=== PATIENT | male | born 1955 | race Caucasian/White ===

== ENCOUNTER → 2016-11-28 | Outpatient (CLI) | payer BC ==
--- NOTE | 2016-11-28 14:04 | DIAGNOSTIC IMAGING REPORT ---
CT OF THE CHEST WITHOUT IV CONTRAST CLINICAL HISTORY: Abnormal chest radiograph. Cough. COMPARISON STUDY: Chest radiograph November 01, 2016. CT DOSE: 426.54 mGy.cm TECHNIQUE: Axial images of the chest were obtained without IV contrast. Images were reviewed in the axial, sagittal, and coronal planes. IV contrast was not administered for this examination. FINDINGS: No enlarged axillary, mediastinal or hilar lymph nodes are present. The size of the heart is normal. There is no pericardial effusion. A small hiatal hernia is present. The central airways are patent. No consolidation is present. No pulmonary nodules are identified. The possible nodule shown on exam of November 01, 2016 was artifactual. There is no pneumothorax or pleural effusion. The bony thorax is unremarkable. A right hepatic lobe cyst is incidentally noted. IMPRESSION: 1. No acute findings within the chest. 2. The possible right lung nodule shown on exam November 01, 2016 was artifactual. 3. Small hiatal hernia. Electronically signed by: Montana Vaca M.D. 11/28/2016 2:02 PM Dictated Date/Time: 11/28/2016 1:51 PM
--- NOTE | 2016-12-01 08:11 | PULMONARY FUNCTION TEST ---
Spirometry shows a normal forced vital capacity, FEV1, and FEV1/FVC ratio. Mid flow rates are decreased to 63% of predicted. This is not definitively abnormal, but cannot exclude small airways dysfunction. A repeat spirometry done following bronchodilators showed significant improvement in small airways function only. Advise clinical correlation. Flow volume loops on expiration were normal. There was marked flattening on the inspiratory portion of the flow volume loop. This is likely due to patient technique. Cannot however, exclude a variable extrathoracic obstruction. Advise clinical correlation.
== END | disposition home or self-care (01) ==
LOC: C.RC 12:46
DX: R05 Cough (principal); R91.8 Other nonspecific abnormal finding of lung field; K44.9 Diaphragmatic hernia without obstruction or gangrene

== ENCOUNTER → 2017-04-21 | Outpatient (CLI) | payer BC ==
[2017-04-21 10:37] LABS: BLOOD UREA NITROGEN 10 mg/dl (7-18); BUN/CREATININE RATIO 10.6 (10-20); CALCIUM 8.6 mg/dl (8.5-10.1); CARBON DIOXIDE 27 mmol/L (21-32); CHLORIDE 109 mmol/L (98-107); CREATININE 0.95 mg/dl (0.60-1.40); GLUCOSE 90 mg/dl (70-99); POTASSIUM 4.2 mmol/L (3.5-5.1); SODIUM 142 mmol/L (136-145)
[2017-04-21 10:41] LABS: CHOLESTEROL 166 mg/dl (0-200); CHOLESTEROL/HDL RATIO 2.9; HDL CHOLESTEROL 57 mg/dl; TRIGLYCERIDES 95 mg/dl (0-150); VERY LOW DENSITY LIPOPROT CALC 19 mg/dl
[2017-04-21 11:25] LABS: URINE APPEARANCE CLEAR (CLEAR); URINE BILIRUBIN NEG (NEG); URINE COLOR YELLOW; URINE EPITHELIAL CELL AUTO 0-5 /lpf (0-5); URINE NITRITE NEG (NEG); URINE SPECIFIC GRAVITY 1.017 (1.000-1.030); UROBILINOGEN NEG (NEG)
[2017-04-21 11:31] LABS: MANUAL MICROSCOPIC REQUIRED? NO; REVIEW REQ? NO
[2017-04-23 11:30] LABS: C-REACTIVE PROT HIGHSEN 3.6 MG/L
== END | disposition home or self-care (01) ==
LOC: C.LAB 09:40
DX: E78.5 Hyperlipidemia, unspecified (principal); R73.9 Hyperglycemia, unspecified; N20.0 Calculus of kidney

== ENCOUNTER 2023-10-13 14:08 | Inpatient (IN) ==
[2023-10-13] MEDS ORDERED: ASPIRIN 81 MG CHEW PO STA (14:25)
[2023-10-13] MEDS ORDERED: NITROGLYCERIN SL 0.4 MG/TAB TAB SL STA (14:25)
--- NOTE | 2023-10-13 14:29 | Emergency Department Note ---
Impression & Plan Chest pain, Elevated troponin ED Provider Note Provider: Alexander Pineda MD DATE OF SERVICE: 10/13/2023 CHIEF COMPLAINT: Chest pain HISTORY OF PRESENT ILLNESS: Patient is a 68-year-old gentleman denies significant past medical history presenting here today with approximately 30 minutes of central chest pressure constant nature started when he was working at his desk. Some associated nausea but no vomiting. Some numbness and tingling in the upper extremities but denies headache. Denies recent illness or cough or cold. Denies shortness of breath to me. Pain is moderate little bit and is currently 4 out of 10 from 5 out of 10 when he arrived. Father did have a history of cardiac disease. Does not take aspirin normally. Non-smoker. No recent travel. No leg swelling. Was a bit sweaty earlier. PAST MEDICAL HISTORY: As noted above MEDICATIONS: Denies to me FMH: Father with heart disease/[place] SOCIAL HISTORY: Non-smoker PHYSICAL EXAM: GENERAL: alert and oriented in no acute distress on stretcher Head: normocephalic and atraumatic EYES: No injection, discharge or icterus. NECK: Trachea midline. ENT: Mucous membranes pink and moist. LUNGS: Airway patent. No retractions. Breath sounds clear HEART: Regular rate and rhythm. No chest wall tenderness ABDOMEN: Soft and non-tender, without guarding or rebound. SKIN: Acyanotic, warm, dry, without rashes EXTREMITIES: Without swelling, tenderness or deformity NEUROLOGICAL: No focal deficits. No aphasia. No facial droop or slurred speech. Ambulatory. EK bpm sinus rhythm left axis. No PVC. ST elevation in V1 with hyperacute T waves V2 through V4. No reciprocal depression appreciated. EKG 2: 78 bpm normal sinus rhythm with a PVC. P1 ST elevation with some prominent V2 V3 V4 T waves. Question of some slight lead II ST depression. CONTINUOUS CARDIAC MONITORING: was ordered and showed a heart rate of 70s to 80s bpm in normal sinus rhythm Patient's laboratory studies and imaging reviewed. Differential includes Cardiac ischemia, aortic dissection, pulmonary embolism, pneumothorax, pneumonia, pericarditis, myocarditis, esophageal rupture, GERD, cholecystitis, pancreatitis, musculoskeletal, as well as other pathologies. IMPRESSION/MEDICAL DECISION MAKING: Patient reportedly without significant past medical history presenting here with chest pressure. No trauma. No recent illness. Benign abdomen without tenderness lower suspicion for intra-abdominal pathology. Initial EKG from triage reviewed by rohitelf and medically put in room A1. Aspirin ordered. Patient evaluated. EKG discussed with interventional cardiology Dr. Curiel given concerning findings. He recommended starting the patient on heparin and ordering a stat cardiac echo and that he would come in and evaluate the patient in room A1 immediately. Patient's pain moderated slightly. Blood work sent including chemistry/electrolytes, lipase and troponin. Chest x-ray ordered. Doubt this represents PE or dissection at this point. Not hypoxic. Not short of breath. Stat cardiac echo was ordered and quickly came to room A1 for evaluation. Dr. Curiel of interventional cardiology reviewed echo and EKGs and evaluated the patient here in room A1. Patient's pain symptoms are moderating some. Chest x- ray report reviewed by myself questioning some interstitial prominence with the patient without infectious symptoms or clinical evidence of fluid overload at this time. Dialer had discussion with patient and family and in shared decision-making proceeded with initiation of a heart alert for further cardiac evaluation. The hospitalist team was made aware. CBC and chemistries without severe abnormality. No finding of hepatitis or pancreatitis. Troponin returns modestly elevated here and again patient going for cardiac catheterization. DIAGNOSIS: Chest pain, elevated troponin DISPOSITION: Hospitalist will evaluate the patient for further care here after cardiac catheterization Critical Care I have personally spent 31 minutes of critical care time in the direct management of this patient. This includes bedside care, interpretation of diagnostic studies, and testing, discussion with consultants, patient, and family members, and other required patient management activities. These 31 minutes is in excess of all separately billable procedures. Past Med/Surg History Medical History Kidney stone Surgical History History of colonoscopy Family History Mother Breast cancer Cancer Denies family history of Ovarian cancer Prostate cancer Myocardial infarction Lung cancer Colorectal cancer Social History Smoking Status: Former smoker Tobacco Type: Cigarettes Age Started Using Tobacco: 18; Age Quit Using Tobacco: 20; Cigarettes Per Day: 1-2 cigarettes per day; Second Hand Exposure: No; Do You Dip or Chew Tobacco: No; Tobacco Cessation Education Requested by Patient: No Hx Alcohol Use: No Hx Substance Use: No Preferred Language: Sinhala Communication Ability: Effective Visual Impairment: Limited Hearing Ability: Normal Needle Loom Weaver Required: No Beliefs That Will Affect Care: None marital status: Current Living Situation: Spouse Current Living Situation Comment: spouse and 1 child current occupational status: employed 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 @ [employer] How many Children do You have: 4 Other Information That Helps Us Care for You: No Feels Safe at Home: No Is there a partner from a previous relationship who is making you feel unsafe now?: No Any Concerns about Your Family Situation: No Would You Like to Speak to Someone About Your Situation: No Safety Concerns: Feels Safe At This Time Childhood Exposure to Second-Hand Smoke: No caffeine: Yes (coffee & tea) Dental Care, Regularly: Yes Physical Activity Frequency: Does not Exercise Seatbelt Use: always Sunscreen Use: No Assistive Devices: None Allergies Allergies Allergy/AdvReac Type Severity Reaction Status Date / Time No Known Allergies Allergy Verified 10/13/23 15:00 Home Meds Home Medications Medication Instructions Recorded Confirmed omega 6-rxd-ahk-fish oil 1,000 mg 1 cap PO DAILY 10/13/23 10/13/23 (120 mg-180 mg) capsule (Fish Oil) psyllium husk 3.4 gram/5.4 gram 1 tbsp PO DAILY 10/13/23 10/13/23 oral powder (Metamucil) Results & Data (ED) Vital Signs Vital Signs - 24 hr 10/13/23 14:08 10/13/23 14:08 10/13/23 14:12 Temperature 36.6 C Temperature Source Temporal Artery Scan Pulse Rate 80 78 Respiratory Rate 18 20 Blood Pressure 120/89 Blood Pressure Mean 99 Pulse Oximetry 96 94 Oxygen Delivery Method Room Air Room Air Sepsis Recent Fever Within 48 Hours No Sepsis New/Unexplained Change in Mental Status N/A Sepsis Action Taken by Nursing No Action Required 10/13/23 14:18 10/13/23 14:31 10/13/23 15:07 Temperature Temperature Source Pulse Rate 78 83 78 Respiratory Rate 20 15 Blood Pressure 120/81 Blood Pressure Mean 94 Pulse Oximetry 95 92 Oxygen Delivery Method Room Air Room Air Sepsis Recent Fever Within 48 Hours Sepsis New/Unexplained Change in Mental Status Sepsis Action Taken by Nursing Laboratory Data 10/13/23 18:23 12/02/23 18:23 Lab Results 10/13/23 10/13/23 10/13/23 Range/Units 14:47 14:50 16:26 WBC 7.14 (4.8-10.8) K/ul RBC 5.71 (4.70-6.10) M/uL Hgb 17.2 (14.0-18.0) g/dl POC Hgb 17.3 (14.0-18.0) g/dl Hct 51.0 (42.0-52.0) % POC Hct 51 (42-52) % MCV 89.3 (80.0-100.0) fL MCH 30.1 (25.0-34.0) pg MCHC 33.7 (32.0-36.0) g/dL RDW Std Deviation 42.5 (36.4-46.3) fL RDW Coeff of Maynor 13.1 (11.5-14.5) % Plt Count 201 (130-400) K/uL MPV 10.7 (9.4-12.4) fL Immature Gran % (Auto) 0.1 % Neut % (Auto) 55.8 % Lymph % (Auto) 30.1 % [place] % (Auto) 8.0 % Eos % (Auto) 5.0 % Baso % (Auto) 1.0 % Neut # (Auto) 3.98 (1.40-6.50) K/uL Lymph # (Auto) 2.15 (1.20-3.40) K/uL [place] # (Auto) 0.57 (0.11-0.59) K/uL Eos # (Auto) 0.36 (0.00-0.50) K/uL Baso # (Auto) 0.07 (0.00-0.20) K/uL Immature Gran # (Auto) 0.01 (0.01-0.20) K/uL Platelet Estimate Normal (Normal) PT Cancelled INR Cancelled APTT Cancelled PTT Ratio Cancelled Activ Coag Time Kaolin 163 H (94-140) SECONDS POC Sodium 138 (135-144) mmol/L Sodium TNP POC Potassium 4.4 (3.3-5.0) mmol/L Potassium TNP POC Chloride 102 (101-112) mmol/L Chloride 101 (98-107) mmol/L Carbon Dioxide 27 (21-32) mmol/L POC Total CO2 28 (24-31) mmol/L Anion Gap TNP POC Anion Gap 13.0 L (16-25) mmol/L POC BUN 23 H (7-18) mg/dl BUN 17 (6-23) mg/dl Creatinine 0.99 (0.6-1.4) mg/dl POC Creatinine 1.0 (0.6-1.3) mg/dl Est Cr Clr Drug Dosing 88.3 ml/min Est GFR ( Amer) 90.3 ml/min Est GFR (Non-Af Amer) 77.9 ml/min BUN/Creatinine Ratio 17.2 (10-20) Glucose 142 H (70-99(Fasting)) mg/dl POC Glucose (other) 151 H (70-99) mg/dl Calcium 9.3 (8.6-10.3) mg/dl POC Ioniz Calcium Bridget 1.15 (1.12-1.32) mmol/l Total Bilirubin 0.4 (0.2-1.0) mg/dl AST TNP ALT 31 (7-52) U/L Alkaline Phosphatase 77 (34-104) U/L Troponin I High Sens 64.4 H* (0-20) pg/ml Total Protein 8.4 H (6.0-8.3) gm/dl Albumin 4.9 (3.4-5.0) gm/dl Globulin 3.5 (2.5-4.0) gm/dl Albumin/Globulin Ratio 1.4 (0.9-2) Lipase 41 (11-82) U/L 10/13/23 10/13/23 10/13/23 Range/Units 16:47 17:08 17:34 WBC (4.8-10.8) K/ul RBC (4.70-6.10) M/uL Hgb (14.0-18.0) g/dl POC Hgb (14.0-18.0) g/dl Hct (42.0-52.0) % POC Hct (42-52) % MCV (80.0-100.0) fL MCH (25.0-34.0) pg MCHC (32.0-36.0) g/dL RDW Std Deviation (36.4-46.3) fL RDW Coeff of Maynor (11.5-14.5) % Plt Count (130-400) K/uL MPV (9.4-12.4) fL Immature Gran % (Auto) % Neut % (Auto) % Lymph % (Auto) % [place] % (Auto) % Eos % (Auto) % Baso % (Auto) % Neut # (Auto) (1.40-6.50) K/uL Lymph # (Auto) (1.20-3.40) K/uL [place] # (Auto) (0.11-0.59) K/uL Eos # (Auto) (0.00-0.50) K/uL Baso # (Auto) (0.00-0.20) K/uL Immature Gran # (Auto) (0.01-0.20) K/uL Platelet Estimate (Normal) PT INR APTT PTT Ratio Activ Coag Time Kaolin 271 H 298 H 217 H (94-140) SECONDS POC Sodium (135-144) mmol/L Sodium POC Potassium (3.3-5.0) mmol/L Potassium POC Chloride (101-112) mmol/L Chloride (98-107) mmol/L Carbon Dioxide (21-32) mmol/L POC Total CO2 (24-31) mmol/L Anion Gap POC Anion Gap (16-25) mmol/L POC BUN (7-18) mg/dl BUN (6-23) mg/dl Creatinine (0.6-1.4) mg/dl POC Creatinine (0.6-1.3) mg/dl Est Cr Clr Drug Dosing ml/min Est GFR ( Amer) ml/min Est GFR (Non-Af Amer) ml/min BUN/Creatinine Ratio (10-20) Glucose (70-99(Fasting)) mg/dl POC Glucose (other) (70-99) mg/dl Calcium (8.6-10.3) mg/dl POC Ioniz Calcium Bridget (1.12-1.32) mmol/l Total Bilirubin (0.2-1.0) mg/dl AST ALT (7-52) U/L Alkaline Phosphatase (34-104) U/L Troponin I High Sens (0-20) pg/ml Total Protein (6.0-8.3) gm/dl Albumin (3.4-5.0) gm/dl Globulin (2.5-4.0) gm/dl Albumin/Globulin Ratio (0.9-2) Lipase (11-82) U/L 10/13/23 Range/Units 17:40 WBC (4.8-10.8) K/ul RBC (4.70-6.10) M/uL Hgb (14.0-18.0) g/dl POC Hgb (14.0-18.0) g/dl Hct (42.0-52.0) % POC Hct (42-52) % MCV (80.0-100.0) fL MCH (25.0-34.0) pg MCHC (32.0-36.0) g/dL RDW Std Deviation (36.4-46.3) fL RDW Coeff of Maynor (11.5-14.5) % Plt Count (130-400) K/uL MPV (9.4-12.4) fL Immature Gran % (Auto) % Neut % (Auto) % Lymph % (Auto) % [place] % (Auto) % Eos % (Auto) % Baso % (Auto) % Neut # (Auto) (1.40-6.50) K/uL Lymph # (Auto) (1.20-3.40) K/uL [place] # (Auto) (0.11-0.59) K/uL Eos # (Auto) (0.00-0.50) K/uL Baso # (Auto) (0.00-0.20) K/uL Immature Gran # (Auto) (0.01-0.20) K/uL Platelet Estimate (Normal) PT INR APTT PTT Ratio Activ Coag Time Kaolin 234 H (94-140) SECONDS POC Sodium (135-144) mmol/L Sodium POC Potassium (3.3-5.0) mmol/L Potassium POC Chloride (101-112) mmol/L Chloride (98-107) mmol/L Carbon Dioxide (21-32) mmol/L POC Total CO2 (24-31) mmol/L Anion Gap POC Anion Gap (16-25) mmol/L POC BUN (7-18) mg/dl BUN (6-23) mg/dl Creatinine (0.6-1.4) mg/dl POC Creatinine (0.6-1.3) mg/dl Est Cr Clr Drug Dosing ml/min Est GFR ( Amer) ml/min Est GFR (Non-Af Amer) ml/min BUN/Creatinine Ratio (10-20) Glucose (70-99(Fasting)) mg/dl POC Glucose (other) (70-99) mg/dl Calcium (8.6-10.3) mg/dl POC Ioniz Calcium Bridget (1.12-1.32) mmol/l Total Bilirubin (0.2-1.0) mg/dl AST ALT (7-52) U/L Alkaline Phosphatase (34-104) U/L Troponin I High Sens (0-20) pg/ml Total Protein (6.0-8.3) gm/dl Albumin (3.4-5.0) gm/dl Globulin (2.5-4.0) gm/dl Albumin/Globulin Ratio (0.9-2) Lipase (11-82) U/L Administered Medications Sodium Chloride (Nss) 1,000 mls @ 75 mls/hr IV .[id number] BRENDON Stop: 11/12/23 18:14 Last Admin: 10/13/23 19:21 Dose: 75 mls/hr Documented By: ZIA Miscellaneous (Icu Protocol For Hyperglycemia) 1 each N/A ACHS BRENDON Stop: 10/15/23 18:13 Last Admin: 10/13/23 18:17 Dose: Not Given Documented By: GPF Discontinued Medications Aspirin (Aspirin 81 Mg Chew) 324 mg PO NOW STA Stop: 10/13/23 14:26 Last Admin: 10/13/23 14:38 Dose: 324 mg Documented By: QGV Fentanyl Citrate (Fentanyl Citrate Pf 100 Mcg/2 Ml Vial) Confirm Administered Dose 100 mcg .ROUTE .STK-MED ONE Stop: 10/13/23 16:00 Last Increment: 10/13/23 17:36 Dose: 50 mcg Documented By: BPY Heparin Sodium (Porcine) (Heparin Sod (Porcine) 1000 Unit/Ml) 4,000 units IV NOW ONE Stop: 10/13/23 15:01 Last Admin: 10/13/23 14:56 Dose: 4,000 units Documented By: QGV Co-signed By: MARY Heparin Sodium (Porcine) (Heparin (Porcine) 1000 Unit/Ml 10 Ml (Loading Unit Operator Use Only)) Confirm Administered Dose 10,000 units .ROUTE .STK-MED ONE Stop: 10/13/23 16:00 Last Admin: 10/13/23 17:36 Dose: 8,000 units Documented By: GREGORY Heparin Sodium/Dextrose (Heparin Iv Adult Wt-Based Low-Dose With Bolus Protocol) 1 each IV NOW STA; Protocol Stop: 10/13/23 14:33 Last Admin: 10/13/23 14:56 Dose: 1 each Documented By: QGV Heparin Sodium/Sodium Chloride (Heparin In Nss Infusion 1000 Unit/500 Ml (2 U/Ml) Bag) Confirm Administered Dose 3,000 units IV .STK-MED ONE Stop: 10/13/23 16:01 Last Admin: 10/13/23 17:37 Dose: 3,000 units Documented By: GREGORY Heparin Sodium/Dextrose (Heparin Sodium/Dextrose) 25,000 units in 500 mls @ 20 mls/hr IV .Q24H [facility]; Protocol Stop: 11/12/23 14:59 Last Admin: 10/13/23 14:56 Dose: 1,000 units/hr, 20 mls/hr Documented By: CARLOSV Co-signed By: MARY Midazolam HCl (Midazolam Hcl 1 Mg/Ml 2ml Vial) Confirm Administered Dose 2 mg .ROUTE .STK-MED ONE Stop: 10/13/23 15:59 Last Admin: 10/13/23 17:36 Dose: 2 mg Documented By: GREGORY Nicardipine HCl (Nicardipine Hcl Inj 2.5 Mg/Ml 10 Ml Amp) Confirm Administered Dose 25 mg .ROUTE .STK-MED ONE Stop: 10/13/23 16:00 Last Admin: 10/13/23 17:37 Dose: 25 mg Documented By: BPElier Nitroglycerin (Nitroglycerin Sl 0.4 Mg/Tab Tab) 0.4 mg SL NOW STA Stop: 10/13/23 14:26 Last Admin: 10/13/23 14:39 Dose: 0.4 mg Documented By: QGV Nitroglycerin/Dextrose (Nitroglycerin/D5w 100mcg/Ml 20ml Syr) Confirm Administered Dose 2,000 mcg .ROUTE .STK-MED ONE Stop: 10/13/23 16:01 Last Admin: 10/13/23 17:37 Dose: 2,000 mcg Documented By: GREGORY Ticagrelor (Ticagrelor 90 Mg Tab) Confirm Administered Dose 180 mg .ROUTE .STK- MED ONE Stop: 10/13/23 17:32 Last Admin: 10/13/23 17:38 Dose: 180 mg Documented By: BPY Imaging Data Radiologist's Impression: Chest X-Ray 10/13/23 14:18 XR chest 1V portable CLINICAL HISTORY: Chest pain, nonspecific COMPARISON STUDY: Chest radiograph November 01, 2016. Chest CT November 28, 2016. FINDINGS: Lung volumes are normal. There is no pneumothorax or pleural effusion. Linear left basilar opacity favors atelectasis. There is mild interstitial thickening. No consolidation is identified. Cardiomediastinal silhouette is unremarkable. IMPRESSION: Interstitial prominence. This may reflect pleural vascular congestion with mild pulmonary edema. An infectious process could appear similar. ACT 112: Negative or not required by law. Electronically signed by: Montana Vaca M.D. 10/13/2023 3:26 PM Discharge Plan Visit Data Chief Complaint: Chest Pain Stated Complaint: CHEST PAIN ED Provider: Alexander Pineda Discharge Problem: Chest pain, Elevated troponin Patient Disposition: Admitted As Inpatient Discharge Instructions Interventions: ED Discharge Assessment Last Done: 10/13/23 16:10 Discharge Problem: Chest pain Qualifiers: Chest pain type: unspecified Qualified Code(s): R07.9 - Chest pain, unspecified
[2023-10-13] MEDS ORDERED: Heparin IV Adult Wt-Based Low-Dose w/ INITIAL Bolus Protocol IV STA (14:32)
[2023-10-13] MEDS ORDERED: HEPARIN SOD (PORCINE) 1000 UNIT/ML IV ONE ×2 (14:48→15:00)
[2023-10-13] MEDS ORDERED: HEPARIN SODIUM/DEXTROSE 25,000 UNITS/500 ML BAG IV SCH (15:00)
[2023-10-13 15:04] LABS: iSTAT Hemoglobin 17.3 g/dl (14.0-18.0); iSTAT Ionized Calcium 1.15 mmol/l (1.12-1.32); iSTAT Potassium 4.4 mmol/L (3.3-5.0)
--- NOTE | 2023-10-13 15:28 | XRay Report ---
XR chest 1V portable CLINICAL HISTORY: Chest pain, nonspecific COMPARISON STUDY: Chest radiograph November 01, 2016. Chest CT November 28, 2016. FINDINGS: Lung volumes are normal. There is no pneumothorax or pleural effusion. Linear left basilar opacity favors atelectasis. There is mild interstitial thickening. No consolidation is identified. Ca rdiomediastinal silhouette is unremarkable. IMPRESSION: Interstitial prominence. This may reflect pleural vascular congestion with mild pulmonary edema. An i nfectious process could appear similar. ACT 112: Negative or not required by law. Electronically signed by: Montana Vaca M.D. 10/13/2023 3:26 PM
[2023-10-13 15:46] LABS: Alanine Aminotransferase 31 U/L (7-52); Albumin Globulin Ratio 1.4 (0.9-2); Albumin Level 4.9 gm/dl (3.4-5.0); Alkaline Phosphatase 77 U/L (34-104); BUN Creatinine Ratio 17.2 (10-20); Bilirubin,Total 0.4 mg/dl (0.2-1.0); Blood Urea Nitrogen 17 mg/dl (6-23); Calcium 9.3 mg/dl (8.6-10.3); Carbon Dioxide 27 mmol/L (21-32); Chloride 101 mmol/L (98-107); Creatinine Clr Calc Pharmacy 88.3 ml/min; Est GFR (African American) 90.3 ml/min; Est GFR (Non-African American) 77.9 ml/min; Globulin 3.5 gm/dl (2.5-4.0); Glucose 142 mg/dl (70-99(Fasting)); Lipase 41 U/L (11-82); Total Protein 8.4 gm/dl (6.0-8.3)
[2023-10-13 15:55] LABS: Hemoglobin 17.2 g/dl (14.0-18.0); Mean Corpuscular Hemoglobin 30.1 pg (25.0-34.0); Mean Corpuscular Hgb Conc 33.7 g/dL (32.0-36.0); Mean Corpuscular Volume 89.3 fL (80.0-100.0); Mean Platelet Volume 10.7 fL (9.4-12.4); Platelet Count 201 K/uL (130-400); RDW Coefficient of Variation 13.1 % (11.5-14.5); RDW Standard Deviation 42.5 fL (36.4-46.3); Red Blood Count 5.71 M/uL (4.70-6.10); White Blood Count 7.14 K/ul (4.8-10.8)
[2023-10-13 15:57] LABS: Basophils # (auto) 0.07 K/uL (0.00-0.20); Eosinophils # (auto) 0.36 K/uL (0.00-0.50); Immature Granulocytes # (auto) 0.01 K/uL (0.01-0.20); Immature Granulocytes % (auto) 0.1 %; Lymphocytes # (auto) 2.15 K/uL (1.20-3.40); Lymphocytes % (auto) 30.1 %; Monocytes # (auto) 0.57 K/uL (0.11-0.59); Neutrophils # (auto) 3.98 K/uL (1.40-6.50); Neutrophils % (auto) 55.8 %; Platelet Estimate Normal (Normal)
[2023-10-13] MEDS ORDERED: MIDAZOLAM HCL 1 MG/ML 2ML VIAL ONE (15:58)
[2023-10-13] MEDS ORDERED: fentaNYL citrate PF 100 MCG/2 ML VIAL ONE (15:59)
[2023-10-13] MEDS ORDERED: niCARdipine HCL INJ 2.5 MG/ML 10 ML AMP ONE (15:59)
[2023-10-13] MEDS ORDERED: HEPARIN (PORCINE) 1000 UNIT/ML 10 ML (CATH LAB USE ONLY) ONE (15:59)
[2023-10-13] MEDS ORDERED: NITROGLYCERIN/D5W 100MCG/ML 20ML SYR ONE (16:00)
--- NOTE | 2023-10-13 16:02 | History & Physical Report ---
Date of Service October 13, 2023 Assessment & Plan (1) STEMI (ST elevation myocardial infarction): Plan: ASA 324mg PO given in the ER and started on IV heparin drip Heart alert called and patient taken emergently to the cath labs Admit to ICU s/p cardiac cath Ongoing treatment per interventional cardiology Admission and Anticipated Discharge Date Admission Date: October 13, 2023 History of Present Illness Chief Complaint: Chest pain Primary Care Provider: Tristin Lopez DO Gonzalo Car is a 68 year old male with no past medical history who presents to the ER with chest pain. Started at 2pm today with 5/10 pain with numbness tingling to both arm and diaphoresis. Pain lasted until nitroglycerin given in the ER. He has no history of coronary artery disease. No chest pain on shortness of breath on exertion prior to this. No diabetes, hypertension, smoking. Allergies Allergy/AdvReac Type Severity Reaction Status Date / Time No Known Allergies Allergy Verified 10/13/23 15:00 Home Medications Medication Instructions Recorded Confirmed Type omega 4-juo-nto-fish oil 1,000 mg 1 cap PO DAILY 10/13/23 10/13/23 History (120 mg-180 mg) capsule (Fish Oil) psyllium husk 3.4 gram/5.4 gram 1 tbsp PO DAILY 10/13/23 10/13/23 History oral powder (Metamucil) Past Med/Surg History Medical History Kidney stone Surgical History History of colonoscopy Family History Mother Breast cancer Cancer Denies family history of Ovarian cancer Prostate cancer Myocardial infarction Lung cancer Colorectal cancer Social History Smoking Status: Former smoker Tobacco Type: Cigarettes Age Started Using Tobacco: 18; Age Quit Using Tobacco: 20; Cigarettes Per Day: 1-2 cigarettes per day; Second Hand Exposure: No; Do You Dip or Chew Tobacco: No; Hx Alcohol Use: No Hx Substance Use: No Preferred Language: Italian Communication Ability: Effective Visual Impairment: Limited Hearing Ability: Normal Shoe Dresser Required: No Beliefs That Will Affect Care: None marital status: Current Living Situation: Spouse Current Living Situation Comment: spouse and 1 child current occupational status: employed 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 @ [employer] How many Children do You have: 4 Feels Safe at Home: No Is there a partner from a previous relationship who is making you feel unsafe now?: No Any Concerns about Your Family Situation: No Would You Like to Speak to Someone About Your Situation: No Childhood Exposure to Second-Hand Smoke: No caffeine: Yes (coffee & tea) Dental Care, Regularly: Yes Physical Activity Frequency: Does not Exercise Seatbelt Use: always Sunscreen Use: No Assistive Devices: None Review of Systems Review of Systems: All systems reviewed & are unremarkable except as noted in HPI & below Physical Exam Constitutional: WD/WN, vitals as above Respiratory: normal respiratory effort, lungs clear to auscultation Cardiovascular: RRR, no murmur, no edema Vessels: posterior tibial pulses present and dorsalis pedis pulses present Gastrointestinal (Abdomen): normal bowel sounds, soft, nontender, no hepatosplenomegaly Musculoskeletal: no cyanosis or clubbing, extremities motor strength 5/5 Skin: no rashes, warm and dry Psychiatric: A+Ox3, euthymic affect Results & Data Results & Data Vital Signs (Past 12 Hours) Vital Signs Temp Pulse Resp BP Pulse Ox O2 Del Method 10/13/23 15:07 78 15 120/81 92 Room Air 10/13/23 14:31 83 10/13/23 14:18 78 20 95 Room Air 10/13/23 14:12 78 20 94 Room Air 10/13/23 14:08 Room Air 10/13/23 14:08 36.6 C 80 18 120/89 96 Laboratory Results Abnormal lab results 10/13/23 10/13/23 10/13/23 Range/Units 14:47 14:50 16:26 Activ Coag Time Kaolin 163 H (94-140) SECONDS POC Anion Gap 13.0 L (16-25) mmol/L POC BUN 23 H (7-18) mg/dl Glucose 142 H (70-99(Fasting)) mg/dl POC Glucose (other) 151 H (70-99) mg/dl Troponin I High Sens 64.4 H* (0-20) pg/ml Total Protein 8.4 H (6.0-8.3) gm/dl 10/13/23 Range/Units 16:47 Activ Coag Time Kaolin 271 H (94-140) SECONDS POC Anion Gap (16-25) mmol/L POC BUN (7-18) mg/dl Glucose (70-99(Fasting)) mg/dl POC Glucose (other) (70-99) mg/dl Troponin I High Sens (0-20) pg/ml Total Protein (6.0-8.3) gm/dl Diagnostic Findings XR chest 1V portable CLINICAL HISTORY: Chest pain, nonspecific COMPARISON STUDY: Chest radiograph November 01, 2016. Chest CT November 28. FINDINGS: Lung volumes are normal. There is no pneumothorax or pleural effusion. Linear left basilar opacity favors atelectasis. There is mild interstitial thickening. No consolidation is identified. Cardiomediastinal silhouette is unremarkable. IMPRESSION: Interstitial prominence. This may reflect pleural vascular congestion with mild pulmonary edema. An infectious process could appear similar. Medications Administered ER Medications Given: Aspirin 324mg PO Nitroglycerin 0.4mg SL Heparin low dose IV with bolus ECG Rate (beats per minute): 79 Rhythm: normal sinus Findings: + ST elevation (V4-5) Comparison ECG Date: from (April 10, 2023) Change: the following changes noted (ischemic changes are new, improved on repeat EKG) Code Status & VTE Plan Code Status Full VTE Prophylaxis Plan VTE Prophylaxis will be ordered: Yes PG Care Time/CCT Total # of Minutes Spent Total Time Spent with Patient: Total time spent is greater than 50% in coordination of care (as documented) at patient's floor/unit and/or counseling patient: Coding Level of Care Code 59952 INT INP/OBS CARE 2/55MIN Diagnoses STEMI (ST elevation myocardial infarction) I21.3
[2023-10-13 16:07] LABS: Troponin I High Sensitivity 64.4 pg/ml (0-20)
--- NOTE | 2023-10-13 16:09 | Pre Anesthesia Assessment ---
Date of Service October 13, 2023 Pre Sedation Assessment Vital Signs Temp Pulse Resp BP Pulse Ox O2 Del Method 10/13/23 15:07 78 15 120/81 92 Room Air 10/13/23 14:31 83 10/13/23 14:18 78 20 95 Room Air 10/13/23 14:12 78 20 94 Room Air 10/13/23 14:08 Room Air 10/13/23 14:08 36.6 C 80 18 120/89 96 Cardiovascular RRR, no murmur, no edema Respiratory normal respiratory effort, lungs clear to auscultation Pre-Sedation Airway Assessment Smoking Status: Former smoker Mallampati 3 ASA 4 Notes The planned sedation has been discussed with the patient. Informed Consent was obtained. I have identified the patient, determined the appropriateness of sedation and have assessed the patient immediately prior to the procedure. All medicine(s) and interventions are by my order.
--- NOTE | 2023-10-13 16:16 | Cardiology Consultation ---
Date of Consultation October 13, 2023 Assessment & Plan (1) Coronary artery disease: Severe multivessel coronary disease which was complex because of ectasia and branch vessel disease. He has been revascularized (see cath report for details). He will be initiated on guideline directed medical therapy for secondary prevention of coronary disease. This includes low-dose aspirin, high intensity statin therapy, beta-kailee, and potentially we will add PAIGE inhibitor or angiotensin receptor kailee. We will also evaluate for occult risk factors such as diabetes. (2) Ischemic cardiomyopathy: The echo done showed significant reduction in the EF prior to revascularization. Official report is not yet available and I will review and complete. Did not appear to have significant valvular heart disease on my initial review. He has been revascularized which should help his EF in the long run. We will choose a heart failure indicated beta-kailee and add an PAIGE inhibitor or angiotensin receptor kailee if tolerated. If the EF seems to be 35% or less he will also be considered for a wearable defibrillator and in all likelihood we will also try to add Entresto/SGLT2 inhibitor/spironolactone. Further recommendations pending results of the echo. (3) STEMI (ST elevation myocardial infarction): Culprit lesion is proximal LAD. Lesion had a lot of thrombus and significant ectasia. Fortunately, we were able to implant a large caliber drug-eluting stent which was able to be fit to the artery with postdilatation reasonably well even through the ectatic portion. There was some embolization of thrombus so the apical flow is slightly reduced and the small branch vessels in the proximal segment are jailed/occluded. The aspirin and Brilinta as well as additional heparin given post catheterization should help improve flow in these areas. Mo reover, the beta-kialee should help dilate the vessel some and improve the flow. If necessary we could add a long acting nitrate if his blood pressure would tolerate. He will remain on aspirin 81 mg daily and Brilinta 90 mg p.o. twice daily for 1 year. (4) Atherogenic dyslipidemia: Patient is high risk. High intensity statin therapy is recommended. Initiated a atorvastatin 40 mg daily and I obtained a lipid panel. Will titrate to achieve greater than or equal to 50% reduction in LDL from untreated baseline. (5) Benign essential hypertension: Blood pressure was elevated but patient was under distress. Starting low-dose beta-kailee and will add agents including PAIGE inhibitor/ARB/Entresto and isosorbide mononitrate as tolerated. Plan Patient will remain in ICU for 24 hours observation. Assuming no complications from stenting or AR then he would be appropriate for transfer to the PCU at that time. Anticipate 48 to 72 hours hospitalization assuming no new clinical problems. 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 He had been feeling "off" preceding the onset of the chest pressure and had some mild nausea. This all occurred after he had a [employer] meeting. He went downstairs and his noticed that he was pale and diaphoretic. Therefore, they decided to seek emergency medical evaluation. Patient received aspirin and nitroglycerin. His EKG demonstrated hyperacute T waves anteriorly and borderline elevation in V1. I was asked to evaluate him. On my arrival he no longer had any chest pain and was resting comfortably in the room. A stat echo revealed severe wall motion abnormalities representing either LAD territory ischemia or Takotsubo cardiomyopathy. Patient's states that he has been under a lot of stress although he minimizes this. Labs were pending on my initial evaluation. We had a long discussion regarding my recommendation for definitive evaluation by coronary angiography given the findings on his echo and concern that this may represent impending AR. Their son is an emergency medicine physician in [place] but I was unable to reach him to discuss his father's care. I discussed the risk, benefits, and alternatives to coronary angiography plus or minus PCI. Risk include but are not limited to; , stroke, AR, renal failure, adverse drug reaction, infection, bleed, need for emergent surgery, exposure to radiation, and we further discussed the lack of onsite cardiac surgical backup. Discussion regarding air evacuation in the event of emergency. Patient's questions were answered in full. He voiced understanding wish to proceed with catheterization plus or minus PCI. Patient denies recent anginal chest pain or dyspnea on exertion. He also denies any syncope, near syncope, orthopnea, PND, racing heartbeat, palpitations, or edema. He has not really had any significant medical issues. He recently changed primary care providers. He has a remote history of tobacco use but has not smoked in many years. He states that his father had an AR around the same age as he is now. He has a younger brother and 3 younger sisters none of whom have any cardiac issues per his knowledge. He voices no other complaints or concerns at this time and is prepared to proceed to the [facility] suite for definitive evaluation. Patient was taken to the cardiac catheterization suite where diagnostic coronary angiography via the radial artery approach demonstrated acute thrombotic subtotal lesion in the proximal LAD with poor distal flow. There was also severe subtotal occlusion in the circumflex artery which was not acute. The RCA was without significant disease. He therefore underwent emergent PCI with implantation of a large caliber drug-eluting stent to the proximal LAD. He then underwent additional PCI of the circumflex using a small to medium caliber drug- eluting stent in the mid segment. Good angiographic results and sabianist of PEDRO-3 flow. Patient was placed on aspirin 81 mg, Brilinta loaded at 180 mg p.o. x 1 with plan for 90 mg p.o. twice daily, and he will be initiated on guideline directed medical therapy for secondary prevention of coronary disease as well. He is now in transport to the ICU where further workup and management will be continued. Allergies Allergy/AdvReac Type Severity Reaction Status Date / Time No Known Allergies Allergy Verified 10/13/23 15:00 Home Medications Medication Instructions Recorded Confirmed Type omega 7-irp-dpj-fish oil 1,000 mg 1 cap PO DAILY 10/13/23 10/13/23 History (120 mg-180 mg) capsule (Fish Oil) psyllium husk 3.4 gram/5.4 gram 1 tbsp PO DAILY 10/13/23 10/13/23 History oral powder (Metamucil) Patient History Medical History Kidney stone Surgical History History of colonoscopy Family History Mother Breast cancer Cancer Denies family history of Ovarian cancer Prostate cancer Myocardial infarction Lung cancer Colorectal cancer Social History Smoking Status: Former smoker Tobacco Type: Cigarettes Age Started Using Tobacco: 18; Age Quit Using Tobacco: 20; Cigarettes Per Day: 1-2 cigarettes per day; Second Hand Exposure: No; Do You Dip or Chew Tobacco: No; Hx Alcohol Use: Yes Alcohol type: beer, wine and hard liquor Alcohol Intake Frequency: Monthly or Less Hx Substance Use: No Preferred Language: Estonian Communication Ability: Effective Visual Impairment: Limited Hearing Ability: Normal marital status: Current Living Situation: Spouse and Family Current Living Situation Comment: spouse and 1 child current occupational status: employed 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 Sclera anicteric. ENMT: Oral mucosa is pink moist and intact. Neck: No JVD Respiratory: Clear to auscultation bilaterally. No wheezing, rhonchi, or rales Cardiovascular: Regular rate and rhythm occasional ectopy on the monitor. Soft systolic murmur. S4 gallop. No edema. Musculoskeletal: no cyanosis or clubbing, extremities motor strength 5/5 Neurologic: Cognition is intact. Speech is fluent. No focal deficits. Psychiatric: A+Ox3, euthymic affect Results & Data Vital Signs (Past 12 Hours) Vital Signs Temp Pulse Resp BP Pulse Ox O2 Del Method 10/13/23 15:07 78 15 120/81 92 Room Air 10/13/23 14:31 83 10/13/23 14:18 78 20 95 Room Air 10/13/23 14:12 78 20 94 Room Air 10/13/23 14:08 Room Air 10/13/23 14:08 36.6 C 80 18 120/89 96 PG Care Time/CCT Total # of Minutes Spent Total Time Spent with Patient: Total time spent is greater than 50% in coordination of care (as documented) at patient's floor/unit and/or counseling patient: Total Critical Care Time: 70 A total of 70 minutes critical care time was spent in the initial examination of the patient, evaluation of the records, review of the echocardiogram and EKG, discussion with the patient, his spouse, and his son, discussion with the care team, formulation and implementation of a plan of care and all associated documentation. This time is exclusive of the time spent on the procedure. Coding Level of Care Code 14578 CRITICAL CARE 1ST 30-74M Diagnoses Coronary artery disease I25.10 Ischemic cardiomyopathy I25.5 STEMI (ST elevation myocardial infarction) I21.3 Atherogenic dyslipidemia E78.5 Benign essential hypertension I10 Time Spent (min) 70
[2023-10-13] MEDS ORDERED: TICAGRELOR 90 MG TAB ONE (17:31)
[2023-10-13] MEDS ORDERED: ONDANSETRON INJ 2 MG/ML 2 ML VIAL IV PRN (18:04)
[2023-10-13] MEDS ORDERED: ACETAMINOPHEN 325 MG TAB PO PRN (18:04)
[2023-10-13] MEDS ORDERED: NITROGLYCERIN SL 0.4 MG/TAB TAB SL PRN (18:04)
[2023-10-13] MEDS ORDERED: ATROPINE SULFATE 0.1 MG/ML 10ML SYR IV PRN (18:04)
[2023-10-13] MEDS ORDERED: MoRPHine SULFATE 10 MG/ML CARP/VIAL IV PRN (18:04)
[2023-10-13] MEDS: ICU Protocol for HYPERglycemia SCH ×2 (18:17→20:30)
[2023-10-13 18:50] LABS: Basophils # (auto) 0.05 K/uL (0.00-0.20); Basophils % (auto) 0.4 %; Eosinophils # (auto) 0.12 K/uL (0.00-0.50); Hematocrit (blood only) 48.6 % (42.0-52.0); Hemoglobin 16.3 g/dl (14.0-18.0); Immature Granulocytes # (auto) 0.06 K/uL (0.01-0.20); Immature Granulocytes % (auto) 0.5 %; Lymphocytes # (auto) 1.59 K/uL (1.20-3.40); Mean Corpuscular Hemoglobin 30.2 pg (25.0-34.0); Mean Corpuscular Hgb Conc 33.5 g/dL (32.0-36.0); Mean Platelet Volume 9.7 fL (9.4-12.4); Monocytes # (auto) 0.62 K/uL (0.11-0.59); Monocytes % (auto) 5.1 %; Neutrophils # (auto) 9.78 K/uL (1.40-6.50); Platelet Count 204 K/uL (130-400); RDW Coefficient of Variation 13.1 % (11.5-14.5); RDW Standard Deviation 42.8 fL (36.4-46.3); White Blood Count 12.22 K/ul (4.8-10.8)
[2023-10-13] MEDS ORDERED: INFLUENZA VACCINE HIGH-DOSE (HD-IIV4) PF 65+ 0.7mL SYR IM ONE (19:02)
--- NOTE | 2023-10-13 19:06 | Cardiac Catheterization ---
ACC Data: Transfer Engineer Cardiac Status Clinical evaluation leading to the procedure CAD Presenation: Non STEMI Anginal Classification: CCS IV Heart Failure: No Cardiogenic Shock within 24 Hours: No Cardiac Arrest within 24 Hours: No Imaging Studies Past 6 Months: Yes (Echo done prior to cath) STEMI OR Non-STEMI Symptom Onset Date: 10/13/23 Symptom Onset Time: 13:00 Thrombolytics: No Coronary Anatomy Dominant: Right Left Main (% Stenosis): Normal LAD (% Stenosis): Proximal (95%, large thrombus) and Mid (50%) D1 (% Stenosis): Proximal (Up to 70%) D2 (% Stenosis): Normal (Mild diffuse) Circumflex (% Stenosis): Proximal (Mild), Mid (40-50%, 95%, and 99% at bifurcation) and Distal (Mild) OM1 (% Stenosis): Ostial (20 to 30%) OM2 (% Stenosis): Normal RCA (% Stenosis): Proximal (Mild) R PDA (% Stenosis): Normal R PL1 (% Stenosis): Normal (Mild scattered) Diagnostic Physicians Name: Cyril Curiel MD, PhD Closure Device Percutaneous Entry Location: Radial Closure Device: Radial Band Recommendations: Medical Therapy and/or Counseling and PCI without planned CABG PCI Indication: PCI for high risk Non-SANGEETHA Lesion Segment Name: Proximal LAD Culprit Artery: Yes Stenosis Prior to Rx (%): 95% Chronic Total Occlusion: No Pre-Procedure PEDRO Flow: 1 Previously Treated Lesion: No Lesion Complexity: High/C Lesion Length (mm): 20 Thrombus Present: Yes Bifurcation Lesion: Yes Guidewire Across Lesion: Yes Lesion #2 Segment Name: Mid circumflex Culprit Artery: No Stenosis Prior to Rx (%): 95 and 99 percent Chronic Total Occlusion: No Pre-Procedure PEDRO Flow: 3 Previously Treated Lesion: No Lesion Complexity: High/C Lesion Length (mm): 15 Thrombus Present: No Bifurcation Lesion: Yes Guidewire Across Lesion: Yes Intraprocedure Events Significant Disection: No Perforation: No Cardiac Cath Procedure Full Procedure Date October 13, 2023 Pre-Procedure Diagnosis Pre-Procedure Diagnosis: Non STEMI AUC Score AUC Score: 07 Post-Procedure Diagnosis Post-Procedure Diagnosis: Severe CAD and Successful PCI Procedure(s) Performed Procedure(s) Performed: Coronary Angiography and Drug Eluting Stent Bench Precision Assembler Cyril Curiel MD, PhD Estimated Blood Loss Estimated Blood Loss: 10 mL Medication(s) Medication(s): Fentanyl, Heparin, Lidocaine 1%, Nicardipine, Nitroglycerin and Versed Summary of Findings Brief description: Patient was brought to the cardiac catheterization suite where he was shaved and prepped in a sterile fashion. Sedated using IV Versed and fentanyl. Soft tiss ues of the right wrist were anesthetized using 2 mL of 1% Xylocaine. The right radial artery was accessed using a modified Seldinger technique and a 6 German radial artery glide sheath was placed. Patient was provided anticoagulation with IV heparin and antispasmodics including nicardipine and nitroglycerin. All catheters were advanced and exchanged over a 0.035 J-tip wire. Left coronary angiography in orthogonal views with a 5 German JL 3.5 diagnostic catheter. Right coronary angiography in orthogonal views with a 5 German JR4 diagnostic catheter. Diagnostic catheters were removed. Decision was made to proceed first with PCI of the LAD (culprit lesion). A 6 German EBU 3.0 guide catheter was used to engage the left main coronary. Through this, a BMW reversal guidewire was advanced and with some difficulty eventually positioned distally in the LAD. Predilatation of the lesion was performed using first a 2.5 x 15 mm trek balloon inflated to 14 michelle followed by a 3.0 x 15 mm trek balloon inflated to 8 michelle followed by 14 michelle. PCI with stent implantation including a 3.5 x 23 mm mary point drug-eluting stent deployed at 14 michelle. (Extending from proximal lesion to just before the mid vessel. Also in the ectatic portion). Post dilatation of the stent using a 4.0 x 9 mm NC sprinter balloon at 17 michelle in the proximal to midportion and 18 michelle in the distal portion covering the ectasia . Final angiographic evaluation after removal of the guidewire and noncompliant balloon. We decided to also perform PCI on the subtotally occluded circumflex. The ACT was checked and additional heparin provided as needed to maintain therapeutic ACT. BMW universal guidewire was redirected into the circumflex and with significant difficulty was eventually passed beyond the lesions in the circumflex into the distal branch. Predilatation of the circumflex lesions using a 2.0 x 12 mm sprinter inflated initially at 8 michelle followed by 14 michelle. A second predilatation using a 2.5 x 8 mm trek balloon across the more proximal of these same lesions up to 8 michelle. PCI with implantation of a 2.25 x 18 mm Julius drug-eluting stent. This did require use of a guide liner delivery catheter. Stent deployed at 12 michelle. Positioned so that its distal edge was just at the bifurcation of the distal circumflex and distal branch. Postdilatation in the proximal portion of that stent using an NC trek 2.25 x 8 mm noncompliant balloon at 18 michelle mid and 22 atmospheres at the proximal edge. Balloon and guidewire were subsequently removed. Final angiographic evaluation was performed in orthogonal views. Guide liner and guide catheter were removed. Radial artery sheath was removed. Hemostasis was obtained using the TR band. Patient remained hemodynamically stable and was asymptomatic. He was then admitted to the ICU for further workup and management. This ended the case. Coronary angiography findings: [id number]-[id number] vessel bifurcating into LAD and circumflex. No more than mild luminal irregularities. LAD- This is large caliber and transapical. Proximal segment has mild early disease and then there is a large amount of thrombus and plaque with stenosis of 95%. PEDRO I flow beyond the lesion and there is ectasia just before the first diagonal. D1 is medium in caliber with proximal up to 70% stenosis. Mid LAD has a focal eccentric 50% stenosis. It then provides a large caliber branching second diagonal which has diffuse mild disease. The distal LAD has mild scattered plaques. LCx-this is large caliber and nondominant. Travels in the AV groove giving its first major branch which is an OM1. This vessel has ostial 20 to 30% stenosis. The mid AV groove circumflex is diffusely and severely diseased. 40 to 50% lesion just after the OM followed by a 95 and 99% subtotal occlusion occurring just before the bifurcation of the next branch. That branch is a medium caliber branching OM 2. The distal AV groove vessel continues with mild disease and relatively small caliber terminating as a small posterolateral branch. There also arises in the atrial branch of small caliber. RCA-this is large caliber and dominant. Proximal vessel with diffuse mild disease. The mid vessel has minimal disease and the distal vessel has mild luminal irregularities. They bifurcate into the large PDA and large branching posterior lateral. These have mild scattered plaques. PCI of LAD- 0% residual stenosis post PCI No evidence of dissection or perforation post PCI PEDRO-3 flow post PCI with the exception of the apex which has PEDRO II flow. Small branch vessels proximally are jailed/occluded from thromboembolism. They will likely improve with anticoagulation and time. PCI of LCx- 0% residual stenosis post PCI No evidence of dissection or perforation post PCI PEDRO-3 flow post PCI Summary: 1. Severe multivessel coronary disease. The proximal LAD is the culprit lesion and harbors significant thrombus. Successful PCI was performed with minimal embolization. The severe circumflex lesions were treated with drug-eluting stent and there is good angiographic results. 2. Patient will remain on dual antiplatelet therapy with aspirin 81 mg daily and Brilinta 90 mg p.o. twice daily for a year. Decision regarding additional therapy extending beyond 1 year will be made in the future. 3. Patient will be started on guideline directed medical therapy for secondary prevention of coronary disease to include; low-dose aspirin, high intensity statin therapy, beta-kailee, plus or minus PAIGE inhibitor/ARB. 4. Strongly encouraged the patient to participate in CARDIAC REHAB after discharge. Hemodynamics Rest Ao:: 105/88 mmHg Final Ao: 124/91 mmHg LV: Not performed Recommendations Recommendations: Medical Therapy and/or Counseling and PCI without planned CABG Radiation Exposure (mGy) 4879 mGy, fluoroscopy time 23.6 minutes Contrast (mls) 298 mL Anesthesia 2 mg IV Versed, 50 mcg IV fentanyl. Start time 1621, end time 1734 Procedural Complication(s) None Disposition ICU I attest to the content of the Intraoperative Record and any orders documented therein. Any exceptions are noted below. [facility] Procedure Codes Cardiac Catheterization Procedure 1: Cardiovascular Cath Procedures: 83425 Coronaries Moderate Sedation Procedure 1: Sedation/Anesthesia: 81100 Mod Sedation by the same physician;Init15 Min Child Age 5 & Up (Initial 15 minutes, start time 1621) Procedure 2: Sedation/Anesthesia: 27416 Mod Sedation by the same physician; Ea [id number] Minutes (Additional 58 min, end time 1734) Stenting Procedure 1: Cardiovascular Stent Procedures: 08001 Perc transluminal revascularization of acute sub/total occl, aMI (LAD) Procedure 2: Cardiovascular Stent Procedures: 20715 Ea addl branch of a major coronary artery (LCx) PG Care Time/CCT Total # of Minutes Spent Total Time Spent with Patient: Total time spent is greater than 50% in coordination of care (as documented) at patient's floor/unit and/or counseling patient:
--- NOTE | 2023-10-13 19:09 | Post Anesthesia Assessment ---
Date of Service October 13, 2023 Post Sedation Assessment Vital Signs Temp Pulse Pulse Resp BP BP Pulse Ox 10/13/23 18:05 37.0 C 84 20 131/91 97 10/13/23 15:07 78 15 120/81 92 10/13/23 14:31 83 10/13/23 14:18 78 20 95 10/13/23 14:12 78 20 94 10/13/23 14:08 10/13/23 14:08 36.6 C 80 18 120/89 96 O2 Del Method O2 Flow Rate 10/13/23 18:05 Nasal Cannula 3 10/13/23 15:07 Room Air 10/13/23 14:31 10/13/23 14:18 Room Air 10/13/23 14:12 Room Air 10/13/23 14:08 Room Air 10/13/23 14:08 Recovery Score Activity: Moves 4 extremities Respiration: Deep Breath/Cough Circulation: +/-20% PreAnes Value Consciousness: Fully Awake Oxygen Saturation: > 92% On Room Air Discharge Sedation Level of Care: Fast Track Phase II Post Sedation Plan On clinical assessment, the patient appears to have tolerated the sedation without complications. Patient is recovering as anticipated. Patient will continue to be monitored by nursing and may be discharged when sedation discharge criteria are met per below protocol. Upon Completions of procedure up to 15 minutes continue every 5 minute vital signs and the P.A.R. score; then discharge to a Phase I or Fast Track to Phase II per the following guidelines: * Discharge Patient to appropriate Phase II area if PAR is 8 or greater or return to pre- procedure baseline. The post - procedure orders will be as directed. * If PAR score is less than 8 or not return to pre-procedure baseline then patient will follow Phase I monitoring till PAR is reached for Phase II. The Phase I may be done in procedure room or may call to secure a Phase I area. * If naloxone or flumazenil are used for reversal, hold in Phase I for continued monitoring from when last reversal dose was given for a minimum of 60 minutes or longer pending the nurse and/or physician discretion of patient condition before discharge to Phase II. Please call the Sedation Physician to re-evaluate and complete post-note for discharge to Phase II area. Do NOT discharge from procedure sedation or Phase 1 until post- sedation evaluation note is complete by procedure /sedation MD Sedation Discharge Instructions to be given to the patient at discharge to home. [facility]odes (Charges) Indication for Procedure Indication for procedure: Unstable non-ST elevation GA Sedation/Anesthesia Procedure 1: Sedation/Anesthesia: 16244 Mod Sedation by the same physician;Init15 Min Child Age 5 & Up (Initial 15 minutes, start time 1621) Total Sedation Time (minutes): 73 Procedure 2: Sedation/Anesthesia: 86948 Mod Sedation by the same physician; Ea [id number] Minutes (Additional 58 min, end time 1734) Total Sedation Time (minutes): 73
[2023-10-13 19:14] LABS: Magnesium 2.1 mg/dl (1.7-2.4); Potassium 4.6 mmol/L (3.5-5.1)
[2023-10-13 19:20] LABS: Chol HDL Ratio 3.2 (0-5)
[2023-10-13] MEDS: SODIUM CHLORIDE 0.9% 1,000 ML IV SCH (19:21)
[2023-10-13 19:29] LABS: Estimated Average Glucose 123 mg/dl; Hemoglobin A1C 5.9 % (4.5-5.6)
[2023-10-13 19:33] LABS: INR 1.1 (0.9-1.1); Partial Thromboplastin Ratio > 4.9; Prothrombin Time 11.6 Seconds (9.0-12.0)
[2023-10-13 19:36] LABS: Partial Thromboplastin Time > 139.0 Seconds (21.0-31.0)
--- NOTE | 2023-10-13 19:38 | XCELERA ---
[id number]}[id number]
--- NOTE | 2023-10-13 19:59 | Critical Care Consultation ---
Date of Consultation October 13, 2023 Assessment & Plan (1) Acute coronary syndrome: Patient with acute non-ST elevation [place] now presents to the ICU post catheterization where he received RENE x1 to the LAD and RENE x1 to circumflex arteries. -Admitted to ICU for 24 hours post PCI -Continue ASA, Brilinta, statin, BB, PAIGE inhibitor -Follow-up repeat echo -Continuous monitor on telemetry -Follow cardiology recommendations (2) Ischemic cardiomyopathy: Echo postcardiac cath with moderately reduced systolic function and EF 40 to 45% severe LAD territory wall motion abnormality. No prior cardiac history. No indication for diuresis at this time we will repeat TTE in a.m. Meds as above (3) Coronary artery disease: As above History of Present Illness Attending Physician: Cyril Curiel MD, PhD History of Present Illness Patient is a 68-year-old male who presented to the emergency department earlier today with complaints of sudden onset of substernal chest pressure, bilateral arm tingling, diaphoresis, and nausea. EKG demonstrated borderline elevation of V1 lead. Labs demonstrated elevated troponin. Patient was evaluated by hr recruiter at the bedside in the emergency department and TTE revealed reduced EF. Patient was taken to the [facility] where he was found to have subtotal occlusion of the proximal LAD and severe subtotal occlusion in the circumflex arteries. He underwent successful PCI to both LAD and circumflex drug-eluting stent. He was transferred to the ICU postcardiac cath. On arrival to the ICU the patient is alert and oriented without acute distress. He is maintaining oxygen saturations on room air and is hemodynamically stable. Patient reports current chest pain 1 out of 10, much improved from earlier. He denies headache, dizziness, syncopal events, changes in vision, fevers, sore throat or cough, palpitations, abdominal pain, diarrhea, swelling hands or feet, or changes in gait. Patient does report bilateral tingling in the arms, diaphoresis, and nausea associated with chest pain earlier today which is since subsided. Patient to remain in ICU for further management at this time. Allergies Allergy/AdvReac Type Severity Reaction Status Date / Time No Known Allergies Allergy Verified 10/13/23 15:00 Home Medications Medication Instructions Recorded Confirmed Type omega 3-tbj-yje-fish oil 1,000 mg 1 cap PO DAILY 10/13/23 10/13/23 History (120 mg-180 mg) capsule (Fish Oil) psyllium husk 3.4 gram/5.4 gram 1 tbsp PO DAILY 10/13/23 10/13/23 History oral powder (Metamucil) Patient History Medical History Kidney stone Surgical History History of colonoscopy Family History Mother Breast cancer Cancer Denies family history of Ovarian cancer Prostate cancer Myocardial infarction Lung cancer Colorectal cancer Social History Smoking Status: Former smoker Tobacco Type: Cigarettes Age Started Using Tobacco: 18; Age Quit Using Tobacco: 20; Cigarettes Per Day: 1-2 cigarettes per day; Second Hand Exposure: No; Do You Dip or Chew Tobacco: No; Tobacco Cessation Education Requested by Patient: No Hx Alcohol Use: No Hx Substance Use: No Preferred Language: Croatian Communication Ability: Effective Visual Impairment: Limited Hearing Ability: Normal Caddie Supervisor Required: No Beliefs That Will Affect Care: None marital status: Current Living Situation: Spouse Current Living Situation Comment: spouse and 1 child current occupational status: employed 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 @ [employer] How many Children do You have: 4 Other Information That Helps Us Care for You: No Feels Safe at Home: No Is there a partner from a previous relationship who is making you feel unsafe now?: No Any Concerns about Your Family Situation: No Would You Like to Speak to Someone About Your Situation: No Safety Concerns: Feels Safe At This Time Childhood Exposure to Second-Hand Smoke: No caffeine: Yes (coffee & tea) Dental Care, Regularly: Yes Physical Activity Frequency: Does not Exercise Seatbelt Use: always Sunscreen Use: No Assistive Devices: None Review of Systems Review of Systems: All systems reviewed & are unremarkable except as noted in HPI & below Physical Exam Constitutional: cooperative and comfortable; no acute distress Eyes: PERRL, conjunctivae normal, anicteric sclerae ENMT: external ear and nose normal, oropharynx normal Neck: trachea midline, no thyromegaly Respiratory: normal respiratory effort, lungs clear to auscultation Cardiovascular: RRR, no murmur, no edema Heart Sounds: normal S1 and normal S2; no murmur Extremities: no edema Gastrointestinal (Abdomen): normal bowel sounds, soft, nontender, no hep atosplenomegaly Skin: no rashes, warm and dry Neurologic: PERRL, EOMI, accommodation nl, no face palsy, no dysarthria Psychiatric: A+Ox3, euthymic affect Results & Data Results & Data Vital Signs (Past 12 Hours) Vital Signs Temp Pulse Pulse Resp BP BP Pulse Ox 10/13/23 18:05 37.0 C 84 20 131/91 97 10/13/23 15:07 78 15 120/81 92 10/13/23 14:31 83 10/13/23 14:18 78 20 95 10/13/23 14:12 78 20 94 10/13/23 14:08 10/13/23 14:08 36.6 C 80 18 120/89 96 O2 Del Method O2 Flow Rate 10/13/23 18:05 Nasal Cannula 3 10/13/23 15:07 Room Air 10/13/23 14:31 10/13/23 14:18 Room Air 10/13/23 14:12 Room Air 10/13/23 14:08 Room Air 10/13/23 14:08 Coding Level of Care Code 59512 IN/OBS CONSULT LVL 2,35M Diagnoses Acute coronary syndrome I24.9 Ischemic cardiomyopathy I25.5 Coronary artery disease I25.10 Time Spent (min) 35
[2023-10-13] MEDS: METOPROLOL TARTRATE 25 MG TAB PO SCH (20:09)
[2023-10-13 22:48] LABS: Partial Thromboplastin Ratio 1.8; Partial Thromboplastin Time 49.5 Seconds (21.0-31.0)
[2023-10-14 03:36] LABS: Phosphorus 2.3 mg/dl (2.5-4.9)
--- NOTE | 2023-10-14 07:46 | Critical Care Progress Note ---
Date of Service October 14, 2023 Assessment & Plan (1) Acute coronary syndrome: (2) Ischemic cardiomyopathy: (3) Coronary artery disease: Plan: As above Plan -- Acute coronary syndrome Patient with acute non-ST elevation [place] now presents to the ICU post catheterization where he received RENE x1 to the LAD and RENE x1 to circumflex arteries on 10/13/2023 -Continue ASA, Brilinta, statin, BB, PAIGE inhibitor -Continuous monitor on telemetry -Follow cardiology recommendations --Blood-tinged emesis Patient did not have any red-colored/berumen colored fluid intake Patient is on dual antiplatelet therapy Start the patient on Protonix IV Stat CBC --New onset CHF Likely secondary to the above event 2D echo 10/13/2023: Moderately reduced systolic function and EF 40 to 45% severe LAD territory wall motion abnormality. --Dyslipidemia Continue with statin --Prophylaxis VTE: IPC GI: Pantoprazole Lines: Peripheral Diet: N.p.o. Plan: In/out: +1.3 L, urine output 450. Patient had new onset red-tinged bilious emesis. He was complaining of some epigastric discomfort overnight. I will order 80 mg Protonix to be given now followed by 40 mg twice daily Stat CBC, keep the patient n.p.o. I would expect a drop in hemoglobin given that he is 1.3 L positive but if there is significant drop then we will get GI involved Disposition as per cardiology Please note the above document was generated using voice recognition software. It may contain grammatical, syntax or spelling errors.Any formal questions or concerns about the content, text or information contained within the body of this dictation should be directly addressed to the provider for clarification. Admission and Anticipated Discharge Date Admission Date: October 13, 2023 Subjective Patient seen and examined at bedside. No acute distress Overnight he did complain of some chest tightness. Denies any vomiting when I examined him but he did have blood-tinged emesis later on. RN notified me about it Was nauseous early in the morning. Was able to tolerate a diet without any issues No headache, no blurry vision Denies any dizziness Review of Systems 2 Review of Systems: All systems reviewed & are unremarkable except as noted in Subjective Physical Exam 2 Physical Exam: Constitutional: No acute distress HEENT: EOMI, PERRLA Respiratory system: Decreased air entry bilaterally, no wheeze, no rhonchi, positive crackles bilateral lower lobes CVS: S1-S2 positive, no murmurs or gallops Abdomen: Soft, nontender, nondistended, positive bowel sounds x4 Extremities: +2 pulses bilaterally radialis/ dorsalis pedis, no cyanosis, no edema Neuro: Awake alert oriented x3 Psych: Normal mood and affect G/U: No Wahl Skin: no rashes, warm and dry Lymphatic: no cervical or axillary lymphadenopathy Results & Data Results & Data Vital Signs (Past 12 Hours) Vital Signs Temp Pulse Resp BP Pulse Ox 10/14/23 06:00 131/87 10/14/23 06:00 87 12 92 10/14/23 05:00 118/91 10/14/23 05:00 85 18 92 10/14/23 04:30 123/89 10/14/23 04:30 79 18 93 10/14/23 04:00 121/93 10/14/23 04:00 76 17 92 10/14/23 03:54 36.9 C 10/14/23 03:30 117/84 10/14/23 03:30 79 15 91 10/14/23 03:00 81 27 H 90 10/14/23 03:00 110/79 10/14/23 02:30 93 H 21 90 10/14/23 02:30 108/75 10/14/23 02:00 119/83 10/14/23 02:00 76 19 90 10/14/23 01:30 87 21 91 10/14/23 01:30 120/86 10/14/23 01:01 85 31 H 93 10/14/23 01:01 113/94 10/14/23 00:30 81 15 95 10/14/23 00:30 121/92 10/14/23 00:00 119/93 10/14/23 00:00 78 17 93 10/14/23 00:00 82 10/13/23 23:05 37 C 10/13/23 23:00 116/90 10/13/23 23:00 73 17 95 10/13/23 22:00 113/90 10/13/23 22:00 87 11 L 94 10/13/23 21:00 120/95 10/13/23 21:00 77 19 95 10/13/23 20:45 127/95 10/13/23 20:45 81 19 96 10/13/23 20:30 127/96 10/13/23 20:30 79 25 H 95 10/13/23 20:15 127/103 H 10/13/23 20:15 81 25 H 96 10/13/23 20:00 127/101 H 10/13/23 20:00 77 22 97 10/13/23 19:45 126/94 10/13/23 19:45 75 14 96 Laboratory Results 10/13/23 18:23 10/13/23 18:23 Coding Level of Care Code 99698 SUB INP/OBS CARE 3/50MIN Diagnoses Acute coronary syndrome I24.9 Ischemic cardiomyopathy I25.5 Coronary artery disease I25.10
[2023-10-14] MEDS: METOPROLOL TARTRATE 25 MG TAB PO SCH (07:57)
[2023-10-14] MEDS: SODIUM CHLORIDE 0.9% 1,000 ML IV SCH (07:57)
[2023-10-14] MEDS: ASPIRIN 81 MG ECTAB PO SCH (07:58)
[2023-10-14] MEDS: TICAGRELOR 90 MG TAB PO SCH ×2 (07:58→20:13)
[2023-10-14] MEDS: ATORVASTATIN 40 MG TAB PO SCH (07:58)
[2023-10-14] MEDS: ICU Protocol for HYPERglycemia SCH ×4 (07:58→20:27)
--- NOTE | 2023-10-14 08:25 | Hospitalist Progress Note ---
Date of Service October 14, 2023 Assessment & Plan (1) NSTEMI (non-ST elevated myocardial infarction): Plan: Presented acute coronary syndrome with EKG changes and elevated troponin c/w Type 1 NSTEMI, (per clothes drier repairer EKG changes did not meet criteria for STEMI) ASA 324mg PO given in the ER and started on IV heparin drip Heart alert called and patient taken emergently to the cath labs, severe multivessel CAD culprit lesion LAD which had thrombus 10/13 Underwent RENE x1 to LAD and RENE x1 to circ by Dr. Curiel -cont ASA, brilinta, high intensity statin (lipid panel P), b-kailee, -consider PAIGE/ARB if tolerated -would benefit from SGLT2 (also has elevated A1c) (2) Acute congestive heart failure: Plan: Due to ischemic cardiomyopathy from STEMI, new onset 2D echo 10/13/2023: Moderately reduced systolic function and EF 40 to 45% severe LAD territory wall motion abnormality, mild-mod MR, mild TR. (3) Nausea & vomiting: Plan: Had nausea during incident chest pain prior to admission, nausea and vomiting AM of 10/14 Obtained EKG in case this is anginal type presentation however it is evolving as expected - reviewed tracing shows his septal q waves, maybe slight improvement inferior leads. Troponin is now downtrending -ordered CMP shows some mild AST/ALT elevation likely related to the PR, bili normal, lipase normal -IV PPI and serial Hct check for the carlos emesis - Hct down slightly getting recheck at 5pm, discussed with Dr. Montes. Is on ASA and brilinta post stent. Consult GI if evidence of significant UGIB -prn antiemetics -improved later in day advancing diet (4) Elevated hemoglobin A1c: Plan: Pre-diabetes - A1c 5.9% (5) Ischemic cardiomyopathy: (6) Coronary artery disease: Plan: Severe multivessel CAD see above Admission and Anticipated Discharge Date Admission Date: October 13, 2023 Subjective Mr. Car is doing okay with respect to resolution of his chest pain following stent. He had an episode of CP this morning was given nitrates by ICU and it resolved. He had problems with nausea late morning however and is currently having some dry heaves. He had some emesis that was carlos in appearance so IV PPI was started and serial hematocrit checks. He denies any NSAID use and denies any ongoing chronic nausea although he had nausea with his chest pain last night. No history of peptic ulcer disease. No abdominal pain. No melena or BRBPR Physical Exam 2 Physical Exam: PHYSICAL EXAMINATION Last 24h vital signs reviewed, see documentation in flowsheet General: sitting in ICU bed, having dry heaves HEENT: Normocephalic, atraumatic, pupils round and equal, sclerae anicteric, no conjunctival injection, moist mucus membranes Lungs: Normal respiratory effort. Clear to auscultation bilaterally. No RRW Heart: Regular rate and rhythm, systolic M murmurs. No JVD Abdomen: Soft, nontender, nondistended. Bowel sounds present. Extremities: Warm, dry, well-perfused. No extremity edema. Neuro: Alert and oriented x 4, face symmetric, moves 4 extremities well Psych: Normal affect and behavior Results & Data Results & Data Vital Signs (Past 12 Hours) Vital Signs Temp Pulse Resp BP Pulse Ox 10/14/23 07:00 37.1 C 10/14/23 06:00 131/87 10/14/23 06:00 87 12 92 10/14/23 05:00 118/91 10/14/23 05:00 85 18 92 10/14/23 04:30 123/89 10/14/23 04:30 79 18 93 10/14/23 04:00 121/93 10/14/23 04:00 76 17 92 10/14/23 03:54 36.9 C 10/14/23 03:30 117/84 10/14/23 03:30 79 15 91 10/14/23 03:00 81 27 H 90 10/14/23 03:00 110/79 10/14/23 02:30 93 H 21 90 10/14/23 02:30 108/75 10/14/23 02:00 119/83 10/14/23 02:00 76 19 90 10/14/23 01:30 87 21 91 10/14/23 01:30 120/86 10/14/23 01:01 85 31 H 93 10/14/23 01:01 113/94 10/14/23 00:30 81 15 95 10/14/23 00:30 121/92 10/14/23 00:00 119/93 10/14/23 00:00 78 17 93 10/14/23 00:00 82 10/13/23 23:05 37 C 10/13/23 23:00 116/90 10/13/23 23:00 73 17 95 10/13/23 22:00 113/90 10/13/23 22:00 87 11 L 94 10/13/23 21:00 120/95 10/13/23 21:00 77 19 95 10/13/23 20:45 127/95 10/13/23 20:45 81 19 96 10/13/23 20:30 127/96 10/13/23 20:30 79 25 H 95 10/13/23 20:15 127/103 H 10/13/23 20:15 81 25 H 96 Laboratory Results 10/13/23 18:23 10/13/23 18:23 Diagnostic Findings 10/14/23 15:14 10/14/23 15:14 PG Care Time/CCT Total # of Minutes Spent Total Time Spent with Patient: Total time spent is greater than 50% in coordination of care (as documented) at patient's floor/unit and/or counseling patient: Coding Level of Care Code 35746 SUB INP/OBS CARE 3/50MIN Diagnoses NSTEMI (non-ST elevated myocardial infarction) I21.4 Acute congestive heart failure I50.9 Nausea & vomiting R11.2 Elevated hemoglobin A1c R73.09 Ischemic cardiomyopathy I25.5 Coronary artery disease I25.10
[2023-10-14 08:57] LABS: BUN Creatinine Ratio 16.3 (10-20); Calcium 8.3 mg/dl (8.6-10.3); Creatinine Clr Calc Pharmacy 100.4 ml/min; Est GFR (African American) 103.3 ml/min; Est GFR (Non-African American) 89.1 ml/min; Magnesium 1.9 mg/dl (1.7-2.4); Phosphorus 2.4 mg/dl (2.5-4.9)
[2023-10-14] MEDS ORDERED: PANTOprazole 80 MG in DEXTROSE 5% 100 ML IV STA (10:57)
--- NOTE | 2023-10-14 10:57 | Cardiology Progress Note ---
Date of Service October 14, 2023 Assessment & Plan (1) NSTEMI (non-ST elevated myocardial infarction): Plan: Severe multivessel coronary disease status post PCI to the proximal LAD for acute thrombotic stenosis and ad hoc PCI to the mid circumflex for severe chr onic disease. Angiographically good results. Significant troponin elevation. Mild to moderate LV systolic dysfunction prior to revascularization. Doing fairly well post OR and PCI. He did have some embolization of the large thrombus burden to the apical LAD as well as the small proximal branches. This may account for his chest discomfort. The aspirin and Brilinta should increase the likelihood that these small branches will regain their perfusion. He will remain on aspirin 81 mg daily and Brilinta 90 mg p.o. twice daily. He should remain in the ICU to complete 24 hours post OR care. I anticipate that the ventricular ectopy and NSVT will continue to lessen in frequency over time and with optimizing his medical therapy. I highly recommend that after discharge he participates in [facility]. (2) Benign essential hypertension: Plan: Blood pressure is at the upper limit of acceptable. He is tolerating his medications. We will be adding isosorbide mononitrate for anginal relief and blood pressure control. His beta-kailee total dose will remain the same but we will change to metoprolol succinate. Additional titration of medications after that. (3) Atherogenic dyslipidemia: Plan: Patient is high risk. High intensity statin therapy is recommended. Baseline untreated LDL is slightly above target for low risk patients. We do recommend aggressive LDL reduction target of greater than or equal to 50% of untreated baseline LDL since he is now considered high risk per guidelines. Continue a atorvastatin at current dose and we will titrate further as an outpatient. (4) Ischemic cardiomyopathy: Plan: Mild to moderate LV systolic dysfunction. No evidence of fluid overload at this time. Renal function is stable post PCI. Changing to metoprolol succinate. If his blood pressure will allow then we will also consider the addition of PAIGE inhibitor or angiotensin receptor kailee in the near future. Since his hemoglobin A1c is also mildly elevated we could also consider an SGLT2 inhibitor. That may be initiated as an outpatient. (5) Coronary artery disease: Plan: Severe multivessel coronary disease. He does have some residual small vessel disease and embolization to small branch vessels. We are starting long-acting nitrate for anginal relief and hopefully to assist the small vessels in clearing and a small clot particle. His blood pressure is at the upper limit of acceptable and his heart rate is above target. Today we are changing him to metoprolol succinate ER 50 mg daily. We may titrate this further as an outpatient. We are also adding the Imdur. Additional guideline directed medical therapy includes low-dose aspirin and high intensity statin therapy. (6) Elevated hemoglobin A1c: Plan: Probably has glucose intolerance. Primary care and medicine will decide what to do next about it. We could consider the SGLT2 inhibitor although his EF is borderline, there is some benefit of these medications with diastolic dysfunction as well. Plan Patient will be appropriate for transfer to the PCU this evening. Assuming no complications over the next 24 hours he will be appropriate for discharge tomorrow afternoon. He would follow-up with me within 1 to 3 weeks of discharge. Admission and Anticipated Discharge Date Admission Date: October 13, 2023 Subjective Patient had some mild chest discomfort overnight which responded to nitroglycerin. Did not receive any morphine for the chest pain but he did receive some Tylenol. This was not effective in alleviating him symptoms. He did note after the nitroglycerin that he had nausea for a brief time. Review of his monitors show that he has had some frequent PVCs and occasional NSVT. I did not see any more than about 3 beats of NSVT at any time. Patient is tired but he is no longer having any chest pain. He denies any shortness of breath. No pain at the right radial access site. He stated that he had some mild swelling yesterday but that has resolved. He is doing some work on his computer and is anxious for discharge. I discussed with him that standard of care would be 48 hours of admission at minimum. He is okay with that. His echocardiogram demonstrated mildly to moderately reduced EF and the only worthwhile valvular issue was mild to moderate MR. He voices no other complaints or concerns at this time. Review of Systems Review of Systems: Negative except as per HPI Physical Exam Constitutional: WD/WN, vitals as above Eyes: Extraocular muscles intact. Sclera anicteric. ENMT: Oral mucosa is pink moist and intact. Neck: No JVD Respiratory: Clear to auscultation bilaterally. No wheezing, rhonchi, or rales Cardiovascular: Regular rate and rhythm occasional ectopy on the monitor. Soft systolic murmur. S4 gallop. No edema. Musculoskeletal: no cyanosis or clubbing, extremities motor strength 5/5 Neurologic: Cognition is intact. Speech is fluent. No focal deficits. Psychiatric: A+Ox3, euthymic affect Results & Data Vital Signs (Past 12 Hours) Vital Signs Temp Pulse Resp BP Pulse Ox 10/14/23 08:00 87 10/14/23 07:00 37.1 C 10/14/23 06:00 131/87 10/14/23 06:00 87 12 92 10/14/23 05:00 118/91 10/14/23 05:00 85 18 92 10/14/23 04:30 123/89 10/14/23 04:30 79 18 93 10/14/23 04:00 121/93 10/14/23 04:00 76 17 92 10/14/23 03:54 36.9 C 10/14/23 03:30 117/84 10/14/23 03:30 79 15 91 10/14/23 03:00 81 27 H 90 10/14/23 03:00 110/79 10/14/23 02:30 93 H 21 90 10/14/23 02:30 108/75 10/14/23 02:00 119/83 10/14/23 02:00 76 19 90 10/14/23 01:30 87 21 91 10/14/23 01:30 120/86 10/14/23 01:01 85 31 H 93 10/14/23 01:01 113/94 10/14/23 00:30 81 15 95 10/14/23 00:30 121/92 10/14/23 00:00 119/93 10/14/23 00:00 78 17 93 10/14/23 00:00 82 10/13/23 23:05 37 C 10/13/23 23:00 116/90 10/13/23 23:00 73 17 95 PG Care Time/CCT Total # of Minutes Spent Total Time Spent with Patient: Total time spent is greater than 50% in coordination of care (as documented) at patient's floor/unit and/or counseling patient: Coding Level of Care Code 76547 SUB INP/OBS CARE 3/50MIN Diagnoses NSTEMI (non-ST elevated myocardial infarction) I21.4 Benign essential hypertension I10 Atherogenic dyslipidemia E78.5 Ischemic cardiomyopathy I25.5 Coronary artery disease I25.10 Elevated hemoglobin A1c R73.09 Time Spent (min) 50
[2023-10-14] MEDS ORDERED: ISOSORBIDE MONO EXTENDED REL 30 MG TABCR PO ONE (11:00)
[2023-10-14 11:25] LABS: Basophils # (auto) 0.04 K/uL (0.00-0.20); Basophils % (auto) 0.3 %; Eosinophils # (auto) 0.02 K/uL (0.00-0.50); Eosinophils % (auto) 0.2 %; Hematocrit (blood only) 46.5 % (42.0-52.0); Hemoglobin 15.7 g/dl (14.0-18.0); Immature Granulocytes # (auto) 0.05 K/uL (0.01-0.20); Immature Granulocytes % (auto) 0.4 %; Lymphocytes # (auto) 1.21 K/uL (1.20-3.40); Lymphocytes % (auto) 9.5 %; Mean Corpuscular Hgb Conc 33.8 g/dL (32.0-36.0); Mean Corpuscular Volume 88.7 fL (80.0-100.0); Mean Platelet Volume 9.4 fL (9.4-12.4); Monocytes # (auto) 1.06 K/uL (0.11-0.59); Monocytes % (auto) 8.3 %; Neutrophils # (auto) 10.32 K/uL (1.40-6.50); Neutrophils % (auto) 81.3 %; Platelet Count 186 K/uL (130-400); RDW Coefficient of Variation 13.2 % (11.5-14.5); RDW Standard Deviation 43.2 fL (36.4-46.3); Red Blood Count 5.24 M/uL (4.70-6.10)
[2023-10-14] MEDS: MAGNESIUM SULFATE / D5W 1 GM/100 ML BAG IV SCH ×2 (11:54→13:36)
--- NOTE | 2023-10-14 13:36 | Electrocardiogram Report ---
Test Reason : Blood Pressure : / mmHG Vent. Rate : 082 BPM Atrial Rate : 082 BPM P-R Int : 172 ms QRS Dur : 096 ms QT Int : 378 ms P-R-T Axes : 053 021 056 degrees QTc Int : 441 ms Normal sinus rhythm Septal infarct , age undetermined Anterior injury pattern Abnormal ECG When compared with ECG of 13-OCT-2023 15:09, (unconfirmed) Septal infarct is now Present ST no longer depressed in Lateral leads Confirmed by Michael Moya ([id number]) on 10/14/2023 1:35:36 PM Referred By: REFERRED SELF Confirmed By:Michael Moya
--- NOTE | 2023-10-14 13:37 | Electrocardiogram Report ---
Test Reason : Blood Pressure : / mmHG Vent. Rate : 096 BPM Atrial Rate : 096 BPM P-R Int : 184 ms QRS Dur : 098 ms QT Int : 328 ms P-R-T Axes : 043 070 097 degrees QTc Int : 414 ms Poor data quality, interpretation may be adversely affected Normal sinus rhythm Low voltage QRS Septal infarct (cited on or before 13-OCT-2023) Anterior ST abnormality Abnormal ECG When compared with ECG of 13-OCT-2023 18:02, (unconfirmed) Nonspecific T wave abnormality now evident in Lateral leads Confirmed by Michael Moya ([id number]) on 10/14/2023 1:36:40 PM Referred By: REFERRED SELF Confirmed By:Michael Moya
[2023-10-14 15:25] LABS: Hematocrit (blood only) 43.4 % (42.0-52.0); Hemoglobin 14.8 g/dl (14.0-18.0)
[2023-10-14 15:44] LABS: Albumin Globulin Ratio 1.4 (0.9-2); Albumin Level 3.6 gm/dl (3.4-5.0); BUN Creatinine Ratio 15.9 (10-20); Bilirubin,Total 0.5 mg/dl (0.2-1.0); Calcium 8.2 mg/dl (8.6-10.3); Creatinine Clr Calc Pharmacy 98.2 ml/min; Est GFR (African American) 102.3 ml/min; Est GFR (Non-African American) 88.3 ml/min; Globulin 2.6 gm/dl (2.5-4.0); Potassium 4.2 mmol/L (3.5-5.1); Total Protein 6.2 gm/dl (6.0-8.3)
[2023-10-14 18:14] LABS: Basophils # (auto) 0.03 K/uL (0.00-0.20); Basophils % (auto) 0.3 %; Eosinophils # (auto) 0.03 K/uL (0.00-0.50); Eosinophils % (auto) 0.3 %; Hematocrit (blood only) 43.7 % (42.0-52.0); Hemoglobin 14.9 g/dl (14.0-18.0); Immature Granulocytes # (auto) 0.04 K/uL (0.01-0.20); Immature Granulocytes % (auto) 0.3 %; Lymphocytes % (auto) 9.6 %; Mean Corpuscular Hemoglobin 30.2 pg (25.0-34.0); Mean Corpuscular Hgb Conc 34.1 g/dL (32.0-36.0); Mean Corpuscular Volume 88.5 fL (80.0-100.0); Mean Platelet Volume 9.7 fL (9.4-12.4); Monocytes # (auto) 0.83 K/uL (0.11-0.59); Monocytes % (auto) 7.2 %; Neutrophils # (auto) 9.46 K/uL (1.40-6.50); Neutrophils % (auto) 82.3 %; Platelet Count 192 K/uL (130-400); RDW Coefficient of Variation 13.2 % (11.5-14.5); Red Blood Count 4.94 M/uL (4.70-6.10); White Blood Count 11.49 K/ul (4.8-10.8)
[2023-10-14] MEDS: PANTOprazole 40 MG in SYRINGE 0 ML IV SCH (20:13)
[2023-10-14] MEDS ORDERED: METOPROLOL SUCC 50MG EXT REL TAB PO SCH (21:00)
[2023-10-15 04:31] LABS: BUN Creatinine Ratio 13.5 (10-20); Calcium 8.5 mg/dl (8.6-10.3); Creatinine Clr Calc Pharmacy 97.1 ml/min; Est GFR (African American) 101.8 ml/min; Est GFR (Non-African American) 87.9 ml/min; Potassium 3.9 mmol/L (3.5-5.1)
--- NOTE | 2023-10-15 07:28 | Hospitalist Progress Note ---
Date of Service October 15, 2023 Assessment & Plan (1) NSTEMI (non-ST elevated myocardial infarction): Plan: Presented acute coronary syndrome with EKG changes and elevated troponin c/w Type 1 NSTEMI, (per process improvement engineer EKG changes did not meet criteria for STEMI) ASA 324mg PO given in the ER and started on IV heparin drip Heart alert called and patient taken emergently to the cath labs, severe multivessel CAD culprit lesion LAD which had thrombus 10/13 Underwent RENE x1 to LAD and RENE x1 to circ by Dr. Curiel -cont ASA, brilinta, high intensity statin (lipid panel P), b-kailee, -consider PAIGE/ARB if tolerated -would benefit from SGLT2 (also has elevated A1c) (2) Acute congestive heart failure: Plan: Due to ischemic cardiomyopathy from STEMI, new onset 2D echo 10/13/2023: Moderately reduced systolic function and EF 40 to 45% severe LAD territory wall motion abnormality, mild-mod MR, mild TR. (3) Nausea & vomiting: Plan: Had nausea during incident chest pain prior to admission, nausea and vomiting AM of 10/14 Obtained EKG in case this is anginal type presentation however it is evolving as expected - reviewed tracing shows his septal q waves, maybe slight improvement inferior leads. Troponin is now downtrending -ordered CMP shows some mild AST/ALT elevation likely related to the PR, bili normal, lipase normal -IV PPI and serial Hct check for the carlos emesis - Hct down slightly getting recheck at 5pm, discussed with Dr. Montes. Is on ASA and brilinta post stent. Consult GI if evidence of significant UGIB -prn antiemetics -improved later in day advancing diet -AM CBC -p (4) Elevated hemoglobin A1c: Plan: Pre-diabetes - A1c 5.9% (5) Ischemic cardiomyopathy: (6) Coronary artery disease: Plan: Severe multivessel CAD see above Admission and Anticipated Discharge Date Admission Date: October 13, 2023 Physical Exam 2 Physical Exam: PHYSICAL EXAMINATION Last 24h vital signs reviewed, see documentation in flowsheet General: sitting in ICU bed, having dry heaves HEENT: Normocephalic, atraumatic, pupils round and equal, sclerae anicteric, no conjunctival injection, moist mucus membranes Lungs: Normal respiratory effort. Clear to auscultation bilaterally. No RRW Heart: Regular rate and rhythm, systolic M murmurs. No JVD Abdomen: Soft, nontender, nondistended. Bowel sounds present. Extremities: Warm, dry, well-perfused. No extremity edema. Neuro: Alert and oriented x 4, face symmetric, moves 4 extremities well Psych: Normal affect and behavior Results & Data Results & Data Vital Signs (Past 12 Hours) Vital Signs Pulse Resp Pulse Ox 10/15/23 00:00 85 10/14/23 19:50 88 16 95 10/14/23 19:40 84 15 95 10/14/23 19:30 92 H 16 94 Laboratory Results 10/14/23 17:54 10/15/23 03:51 PG Care Time/CCT Total # of Minutes Spent Total Time Spent with Patient: Total time spent is greater than 50% in coordination of care (as documented) at patient's floor/unit and/or counseling patient: Coding Diagnoses NSTEMI (non-ST elevated myocardial infarction) I21.4 Acute congestive heart failure I50.9 Nausea & vomiting R11.2 Elevated hemoglobin A1c R73.09 Ischemic cardiomyopathy I25.5 Coronary artery disease I25.10
[2023-10-15] MEDS: PANTOprazole 40 MG in SYRINGE 0 ML IV SCH (08:58)
[2023-10-15] MEDS: ATORVASTATIN 40 MG TAB PO SCH (08:59)
[2023-10-15] MEDS: TICAGRELOR 90 MG TAB PO SCH (08:59)
[2023-10-15] MEDS: ASPIRIN 81 MG ECTAB PO SCH (08:59)
[2023-10-15] MEDS ORDERED: ISOSORBIDE MONO EXTENDED REL 30 MG TABCR PO SCH (09:00)
--- NOTE | 2023-10-15 12:52 | Electrocardiogram Report ---
Test Reason : Blood Pressure : / mmHG Vent. Rate : 079 BPM Atrial Rate : 079 BPM P-R Int : 178 ms QRS Dur : 108 ms QT Int : 368 ms P-R-T Axes : 043 -56 058 degrees QTc Int : 421 ms Normal sinus rhythm Left axis deviation Incomplete left bundle block Minimal voltage criteria for LVH, may be normal variant ( ) Hyperacute T wave abnormality Abnormal ECG No previous ECGs available Confirmed by Michael Moya ([id number]) on 10/15/2023 12:52:02 PM Referred By: REFERRED SELF Confirmed By:Michael Moya
--- NOTE | 2023-10-15 12:53 | Electrocardiogram Report ---
Test Reason : Blood Pressure : / mmHG Vent. Rate : 078 BPM Atrial Rate : 078 BPM P-R Int : 194 ms QRS Dur : 092 ms QT Int : 376 ms P-R-T Axes : 052 -42 068 degrees QTc Int : 428 ms Normal sinus rhythm Left axis deviation Anteroseptal ST abnormality Abnormal ECG No previous ECGs available Confirmed by Michael Moya ([id number]) on 10/15/2023 12:52:35 PM Referred By: REFERRED SELF Confirmed By:Michael Moya
--- NOTE | 2023-10-15 20:13 | Discharge Summary ---
Date of Service October 15, 2023 Admission HPI Per Admitting Provider Gonzalo Car is a 68 year old male with no past medical history who presents to the ER with chest pain. Started at 2pm today with 5/10 pain with numbness tingling to both arm and diaphoresis. Pain lasted until nitroglycerin given in the ER. He has no history of coronary artery disease. No chest pain on shortness of breath on exertion prior to this. No diabetes, hypertension, smoking. Principal Diagnosis NSTEMI Discharge Exam PHYSICAL EXAMINATION Last 24h vital signs reviewed, see documentation in flowsheet General: comfortable appearing, no distress, sitting up in chair eating lunch and appears well HEENT: Normocephalic, atraumatic, pupils round and equal, sclerae anicteric, no conjunctival injection, moist mucus membranes Lungs: Normal respiratory effort. Clear to auscultation bilaterally. No RRW Heart: Regular rate and rhythm, no murmurs. No JVD Abdomen: Soft, nondistended. Bowel sounds present. Extremities: Warm, dry, well-perfused. No extremity edema. Neuro: Alert and oriented x 4, face symmetric, moves 4 extremities well Psych: Normal affect and behavior Discharge Data Allergies Allergy/AdvReac Type Severity Reaction Status Date / Time No Known Allergies Allergy Verified 10/13/23 15:00 Consultations 10/13/23 15:55 ED Decision to Admit Stat 10/13/23 15:56 Consult Cardiac Catheterization Routine 10/13/23 18:14 Consult Isolation Washer Routine Procedures Performed Operation Date: 10/13/23 16:15 Actual Procedures s Cineradiography w/Routine Exam - Cyril Curiel MD, PhD p Cath, Coronaries ONLY (no LV) - Cyril Curiel MD, PhD s Aspiration/PCI w/RENE for Stemi - Cyril Curiel MD, PhD s Drug Eluting Stent SGl Vessel - Cyril Curiel MD, PhD Ordered Studies 10/13/23 15:55 CL Cath Imgs for PACS use only Stat CL Cath Imgs for PACS use only Stat 10/13/23 16:01 CL Cath Imgs for PACS use only Stat 10/15/23 10/14/23 Range/Units 03:51 20:08 Sodium 137 (136-145) mmol/L Potassium 3.9 (3.5-5.1) mmol/L Chloride 106 (98-107) mmol/L Carbon Dioxide 24 (21-32) mmol/L Anion Gap 7 (3-11) BUN 12 (6-23) mg/dl Creatinine 0.89 (0.6-1.4) mg/dl Est Cr Clr Drug Dosing 97.1 ml/min Est GFR ( Amer) 101.8 ml/min Est GFR (Non-Af Amer) 87.9 ml/min BUN/Creatinine Ratio 13.5 (10-20) Glucose 119 H (70-99(Fasting)) mg/dl POC Glucose 115 H (70-99) mg/dl Calcium 8.5 L (8.6-10.3) mg/dl Magnesium 2.0 (1.7-2.4) mg/dl Diabetes Follow up Primary care for mild prediabetes A1c 5.9 Hospital Course (1) NSTEMI (non-ST elevated myocardial infarction): Presented acute coronary syndrome with EKG changes and elevated troponin c/w Type 1 NSTEMI, (per [facility] programmer EKG changes did not meet criteria for STEMI) ASA 324mg PO given in the ER and started on IV heparin drip Heart alert called and patient taken emergently to the cath labs, severe multivessel CAD culprit lesion LAD which had thrombus / Underwent RENE x1 to LAD and RENE x1 to circ by Dr. Curiel TTE with mildly to moderately reduced EF, extensive severe LAD territory wall motion abnormalities, mild to moderate MR, mild TR -cont ASA, brilinta, high intensity statin, b-kailee -Nitrate added by cardiology -I made cardiac rehab referral (2) Acute congestive heart failure: Due to ischemic cardiomyopathy from STEMI, new onset -Nitrates started -Euvolemic, not on diuretic -repeat Echo as outpatient with cardiology (3) Nausea & vomiting: Had nausea at the time of his initial presentation with chest pain, resolved. Morning after PCI had nausea and emesis, abdominal exam remained benign, CMP and lipase were normal. Treated with antiemetics and resolved. Eating well today. Unclear whether reaction to some of the anesthetic medications or somehow cardiac related but EKG was unchanged and troponins continue to downtrend. Resolved (4) Elevated hemoglobin A1c: 5.9% consistent with mild prediabetes, counseled lifestyle measures including avoiding sugar and simple carbohydrates in diet. May benefit from SGLT2 inhibitor or metformin, he will follow-up in primary care (5) Ischemic cardiomyopathy: (6) Coronary artery disease: Total Time Total Time Spent Total Time Spent (In Minutes): 40 minutes spent coordinating care for discharge, I also updated his son and ED physician by phone day of discharge Discharge Plan Discharge Items Patient Disposition: Home - Self-Care Reason For Visit: SETMI Discharge Diagnosis: Non-ST elevation TN (high risk) Status post PCI of LAD and circumflex Severe multivessel coronary disease Acute mild to moderate systolic heart failure Atherogenic dyslipidemia Benign essential hypertension Glucose intolerance Activity: Per Instructions section Non-emergency contact: Primary Care Provider and Office Auditor Call non-emergency contact if: you have any medication questions, your symptoms worsen, your pain is not controlled, you have a fever, your wound has increased redness and your wound has increased drainage Follow-up/Referrals: Tristin Lopez DO [Primary Care Provider] - 10/22/23 2:00 pm (Follow up scheduled on 10/22/23 @ 2pm) Diet: Heart Healthy Addtl Attending Provider Instructions: ACTIVITY RECOMMENDATIONS: It is common to feel weak and fatigue for a few days. * Do not drive or operate any motorized equipment for the next three days. * Limit stair usage (2 or 3 trips a day only) for the next three days. * Do not lift anything heavier than 10 pounds for the next three days. * Do not engage in vigorous exercise or any sports for the next five days. * You may shower the day after your procedure, but do not immerse the area for three days. Cleanse the site gently with soap and water. SPECIAL CARE INSTRUCTIONS: * You may replace the pressure dressing or band-aid the morning after the procedure. * After your procedure, it is normal to have a small bruise or small lump at the site. Examine your site daily for any change in the bruise or lump, redness, swelling, drainage or numbness. Notify your doctor if any change. BLEEDING: * If there is a small amount of bleeding at the site, lie down and apply firm pressure with a clean cloth for ten minutes. When the bleeding stops, lie quietly keeping the procedure limb straight for six hours. Notify your doctor as soon as possible. * If the bleeding does not stop after ten minutes or if there is a large amount of bleeding or spurting, call 911 immediately. Continue to lie down and hold firm pressure until help arrives. SKIN IRRITATION: * You may experience some redness and/or swelling in the area where radiation was administered. If any skin irritation occurs, please contact your family physician. FOLLOW UP VISIT: Keep any scheduled doctor appointments. Addtl Package Center Supervisor Provider Instructions: You were treated for heart attack. The [facility] programmer prescribed aspirin and brillinta - it is extremely important to stay on both of these medications for a year to keep your stent open. These medications should not be stopped early, except in an emergency with consultation by [facility]view programmer. Additional important medications for your heart: Metoprolol to help your heart heal and reduce the work load on your heart Isosorbide - helps relax the heart arteries, prevent angina, and reduce your blood pressure Atorvastatin (lipitor) - reduced cholesterol, protects the arteries in your body by reducing inflammation Cardiac rehab referral was made - this is a safe way to increase your exercise after heart attack You are mildly prediabetic based on labs. Exercise and diet may be effective in reversing this. Reduce sugar and simple carbohydrates in your diet ("white" carbs), try to eat more vegetables whole grains lean meats and fish Follow up with your primary care doctor to consider whether you need medication for this in the future You may have some gastritis (stomach inflammation) - I prescribed acid suppression (omeprazole) take this for about a month, and you can try to stop after that if no further symptoms. Seek medical attention if you have signs of gastrointestinal bleeding like black tarry or bloody stool Maria L Nickerson MD Pending Studies at Discharge: No Stand-Alone Forms: My [facility], Smoking Cessation Medications and DC Order Prescriptions: New atorvastatin 40 mg Tablet 40 mg PO QAM Qty: 90 3RF metoprolol succinate 50 mg Tablet Extended Release 24 Hr 50 mg PO HS Qty: 90 3RF isosorbide mononitrate 30 mg Tablet Extended Release 24 Hr 30 mg PO QAM Qty: 90 3RF aspirin 81 mg Tablet,Delayed Release (Dr/Ec) 81 mg PO QAM Qty: 90 3RF nitroglycerin [Nitrostat] 0.4 mg Tablet, Sublingual 0.4 mg sublingual Q5M MDD 3 Qty: 25 3RF Brilinta 90 mg Tablet 90 mg PO BID Qty: 180 3RF omeprazole 40 mg capsule,delayed release(DR/EC) 40 mg PO DAILY 28 Days Qty: 28 0RF Continued omega 7-bon-zyz-fish oil [Fish Oil] 1,000 mg (120 mg-180 mg) Capsule 1 cap PO DAILY Metamucil 3.4 gram/5.4 gram Powder 1 tbsp PO DAILY Rx Instructions: mix into at least 8 oz of water or juice before administering Discharge Orders: Discharge Order (Routine); Ordered 10/15/23 Ordered By: Maria L Nickerson Admission Data Admit Date/Time: 10/13/23 17:58 Attending Provider: Maria L Nickerson Admit Provider: Dwight Leavitt Primary Care Provider: Tristin Lopez Other Providers: Dwight Leavitt; Cyril Curiel; Lexii Montes Other Interventions: Discharge Summary Assessment (RN) Last Done: 10/15/23 09:33 Coding Level of Care Code 07807 INP/OBS DISCH >30 MIN Diagnoses NSTEMI (non-ST elevated myocardial infarction) I21.4 Acute congestive heart failure I50.9 Nausea & vomiting R11.2 Elevated hemoglobin A1c R73.09 Ischemic cardiomyopathy I25.5 Coronary artery disease I25.10
--- NOTE | 2023-10-16 12:54 | XCELERA ---
[id number]
== END 2023-10-15 13:42 | disposition home or self-care (01) | DRG 321 ==
LOC: ED 14:08 → 1E 16:10 → CC 16:10 → 1E 17:58 → SUATTDRO 17:58
PROC: CLB.CCO (2023-10-13 16:15)

== ENCOUNTER 2024-07-09 11:38 | Observation (INO) ==
--- NOTE | 2024-07-09 11:53 | Emergency Department Note ---
Impression & Plan Syncope, Coronary artery disease, Laceration of scalp ED Provider Note NAME: HIMA MARSHALL AGE: 69 SEX: M : 1955 ARRIVES VIA: Ambulance INFORMANT: Patient ED PROVIDER(S): Msiha Borden DO CHIEF COMPLAINT: Syncope x 2 HPI: Patient is a 69-year-old male with a past medical history of ischemic cardiomyopathy, CAD, OR, dyslipidemia, hypertension who presents to the ER for syncopal episode. 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 He was initially called the first time and then he passed out again and fell backwards and hit his head. He admits to headache. No neck pain. No chest pain or shortness of breath preceding or following the event. No belly pain, nausea, vomiting or diarrhea. No dysuria urgency or frequency. No other prodromal symptoms. ADDITIONAL HISTORY OBTAINED: Per HPI Chronic Medical/Social Conditions Affecting Care: Per HPI PAST MEDICAL HISTORY:See Below PAST SURGICAL HISTORY:See Below FAMILY HISTORY:See Below SOCIAL HISTORY:See Below HOME MEDICATIONS:See Below ALLERGIES:See Below VITALS:See Below PHYSICAL EXAMINATION: GENERAL: alert, well appearing, well nourished, no distress, non-toxic HEAD: normal cephalic, contusion right posterior scalp with a 2 cm linear laceration EYE EXAM: normal conjunctiva, PERRL and EOM's grossly intact OROPHARYNX: no exudate, no erythema, lips, buccal mucosa, and tongue normal and mucous membranes are moist NECK: supple, no nuchal rigidity, no adenopathy, non-tender CHEST: stable to compression anteriorly and posteriorly LUNGS: clear to auscultation. Normal chest wall mechanics HEART: no murmurs, S1 normal and S2 normal ABDOMEN: abdomen soft, non-tender, normo-active bowel sounds, no masses, no rebound or guarding. PELVIS: stable to compression anteriorly and posteriorly BACK: Back is symmetrical on inspection and there is no deformity, no midline tenderness, no CVA tenderness. UPPER EXTREMITIES: full active and passive range of motion of all joints without tenderness to palpation LOWER EXTREMITIES: full active and passive range of motion of all joints without tenderness to palpation NEURO EXAM: Awake alert oriented to person and place but not day, cranial nerves II-XII intact, normal speech, no weakness of arms, no weakness of legs. GCS: 15. MEDICAL DECISION MAKING: Patient is a 69-year-old male who presents ER for the above-stated complaint. IV was established blood work was obtained. Labs show no significant leukocytosis or anemia. BMP with LFTs, bilirubin, is unremarkable. Troponin negative. CT head and cervical spine was negative. Chest x-ray was unremarkable. Laceration was repaired by myself at bedside. Patient was updated at bedside and discussed with the hospitalist with his age and previous cardiac issues and recurrent syncope. Also on repeat evaluation he was slightly confused still which did clear up. [place] will need to be removed as an outpatient. Consults/Care Managements Discussions: Per [facility] Triage Nursing notes reviewed. Limited review of prior medical records performed Vital Signs: reviewed and remarkable for no significant abnormalities Differential diagnosis: Differential diagnoses include major intracranial, cervical, spinal, thoracic, abdominal, pelvic and neurologic injury. Fracture, contusion, sprain, strain, laceration, abrasions included as well. ER treatment provided: See below Diagnostics interpreted by me include EKG and cardiac monitoring as listed below: -Cardiac Monitoring: An order was placed for continuous cardiac monitoring. The monitor shows a rate of 60 with sinus rhythm. -ECG: Sinus rhythm rate of 57 Left axis No PVCs Nonspecific ST wave changes in the high lateral leads QTc 406 -Laboratory studies:Interpreted by me as stated above in [facility] and shown below. Imaging studies: Xrays: As interpreted by me: Portable AP upright 1 view of the chest shows no focal infiltrate CTs show: CT head and cervical spine is unremarkable Procedures:Laceration repair of scalp: Wound measured 2.5 cm. Let gel was used for local anesthesia. The wound was inspected for foreign bodies, tendon, artery and bone or joint involvement and none was found. The wound was irrigated with saline and closed with 2 mike(s) and a clean dressing was applied. The patient tolerated the procedure well. Critical Care: None Past Med/Surg History Problem List (Updated 07/09/24 @ 18:11 by Misha Borden DO) Laceration of scalp (Acute) Syncope (Acute) Elevated hemoglobin A1c Benign essential hypertension Atherogenic dyslipidemia Ischemic cardiomyopathy Coronary artery disease (Acute) Medical History NSTEMI (non-ST elevated myocardial infarction) Acute congestive heart failure Myocardial Infarction Hyperlipidemia Acute coronary syndrome Chest pain Kidney stone Surgical History History of heart artery stent History of colonoscopy Family History Mother Breast cancer Cancer Denies family history of Ovarian cancer Prostate cancer Myocardial infarction Lung cancer Colorectal cancer Social History Smoking Status: Former smoker Tobacco Type: Cigarettes Age Started Using Tobacco: 18; Age Quit Using Tobacco: 20; Cigarettes Per Day: 1-2 cigarettes per day; Second Hand Exposure: No; Do You Dip or Chew Tobacco: No; Hx Alcohol Use: Yes Alcohol type: wine Alcohol Intake Frequency: Monthly or Less Hx Substance Use: No Preferred Language: Indonesian Communication Ability: Effective Visual Impairment: Limited Hearing Ability: Normal Warranty Administrator Required: No Beliefs That Will Affect Care: None marital status: Current Living Situation: Spouse Current Living Situation Comment: spouse and 1 child current occupational status: employed 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 [employer] How many Children do You have: 4 Feels Safe at Home: Yes Childhood Exposure to Second-Hand Smoke: No Diet: regular caffeine: Yes (coffee & tea) during the past year weight has: remained stable Dental Care, Regularly: Yes Physical Activity Frequency: 3-4 Times per Week Physical Activity Frequency Comment: walking Seatbelt Use: always Sunscreen Use: No Assistive Devices: None Allergies Allergies Allergy/AdvReac Type Severity Reaction Status Date / Time No Known Allergies Allergy Verified 07/09/24 15:04 Home Meds Home Medications Medication Instructions Recorded Confirmed omega [id number]-[id number]-[id number]-fish oil 1,000 mg 1 cap PO DAILY 10/13/23 07/09/24 (120 mg-180 mg) capsule (Fish Oil) psyllium husk 3.4 gram/5.4 gram 1 tbsp PO DAILY 10/13/23 07/09/24 oral powder (Metamucil) nitroglycerin 0.4 mg sublingual 0.4 mg sublingual Q5M PRN Chest 10/17/23 07/09/24 tablet (Nitrostat) pain metoprolol succinate 50 mg 50 mg PO HS 07/09/24 07/09/24 tablet,extended release 24 hr Previous Rx's Medication Instructions Recorded ticagrelor 90 mg tablet (Brilinta) 90 mg PO BID #180 tabs 10/14/23 losartan 25 mg tablet 25 mg PO DAILY #90 tabs 11/14/23 aspirin 81 mg tablet,delayed 81 mg PO QAM #90 tabs 12/14/23 release atorvastatin 40 mg tablet 40 mg PO QAM #90 tabs 04/28/24 Results & Data (ED) Vital Signs Vital Signs - 24 hr 07/09/24 11:38 07/09/24 11:38 07/09/24 11:38 Temperature 36.5 C 36.5 C Temperature Source Oral Pulse Rate 62 62 Pulse Rate [Apical] 62 Pulse Rate from SpO2 Sensor Pulse Rhythm Regular Pulse Rhythm [Apical] Regular Pulse Strength Normal Pulse Strength [Apical] Normal Respiratory Rate 18 18 18 Respiratory Effort / Characteristics Non-Labored Non-Labored Respiratory Depth Normal Normal Respiratory Pattern Regular Regular Blood Pressure 120/81 120/81 Blood Pressure [Left Arm] 120/81 Blood Pressure Mean 94 Blood Pressure Mean [Left Arm] 94 Blood Pressure Position Lying Blood Pressure Position [Left Arm] Lying Pulse Oximetry 97 97 97 Oxygen Delivery Method Room Air Room Air Room Air Sepsis Recent Fever Within 48 Hours No Sepsis New/Unexplained Change in Mental Status No Sepsis Action Taken by Nursing No Action Required 07/09/24 11:38 07/09/24 11:38 07/09/24 11:50 Temperature Temperature Source Pulse Rate 62 Pulse Rate [Apical] 62 Pulse Rate from SpO2 Sensor Pulse Rhythm Regular Pulse Rhythm [Apical] Regular Pulse Strength Pulse Strength [Apical] Normal Respiratory Rate 18 18 Respiratory Effort / Characteristics Non-Labored Respiratory Depth Normal Respiratory Pattern Regular Blood Pressure Blood Pressure [Left Arm] 120/81 Blood Pressure Mean Blood Pressure Mean [Left Arm] 94 Blood Pressure Position Blood Pressure Position [Left Arm] Sitting Pulse Oximetry 97 97 Oxygen Delivery Method Room Air Room Air Room Air Sepsis Recent Fever Within 48 Hours Sepsis New/Unexplained Change in Mental Status Sepsis Action Taken by Nursing 07/09/24 12:00 07/09/24 12:18 07/09/24 12:22 Temperature Temperature Source Pulse Rate 70 69 Pulse Rate [Apical] Pulse Rate from SpO2 Sensor 71 Pulse Rhythm Pulse Rhythm [Apical] Pulse Strength Pulse Strength [Apical] Respiratory Rate 18 Respiratory Effort / Characteristics Respiratory Depth Respiratory Pattern Blood Pressure 116/86 Blood Pressure [Left Arm] Blood Pressure Mean 93 Blood Pressure Mean [Left Arm] Blood Pressure Position Blood Pressure Position [Left Arm] Pulse Oximetry 100 Oxygen Delivery Method Sepsis Recent Fever Within 48 Hours Sepsis New/Unexplained Change in Mental Status Sepsis Action Taken by Nursing 07/09/24 12:30 07/09/24 12:30 07/09/24 12:33 Temperature Temperature Source Pulse Rate 78 Pulse Rate [Apical] Pulse Rate from SpO2 Sensor 77 Pulse Rhythm Pulse Rhythm [Apical] Pulse Strength Pulse Strength [Apical] Respiratory Rate 12 Respiratory Effort / Characteristics Respiratory Depth Respiratory Pattern Blood Pressure 127/87 127/87 Blood Pressure [Left Arm] Blood Pressure Mean 97 97 Blood Pressure Mean [Left Arm] Blood Pressure Position Blood Pressure Position [Left Arm] Pulse Oximetry 100 Oxygen Delivery Method Sepsis Recent Fever Within 48 Hours Sepsis New/Unexplained Change in Mental Status Sepsis Action Taken by Nursing 07/09/24 12:38 07/09/24 13:15 07/09/24 13:30 Temperature Temperature Source Pulse Rate 74 86 Pulse Rate [Apical] 85 Pulse Rate from SpO2 Sensor 74 Pulse Rhythm Pulse Rhythm [Apical] Regular Pulse Strength Pulse Strength [Apical] Normal Respiratory Rate 16 17 14 Respiratory Effort / Characteristics Non-Labored Respiratory Depth Normal Respiratory Pattern Regular Blood Pressure Blood Pressure [Left Arm] 112/68 Blood Pressure Mean Blood Pressure Mean [Left Arm] 82 Blood Pressure Position Blood Pressure Position [Left Arm] Lying Pulse Oximetry 100 100 Oxygen Delivery Method Room Air Sepsis Recent Fever Within 48 Hours Sepsis New/Unexplained Change in Mental Status Sepsis Action Taken by Nursing 07/09/24 13:30 07/09/24 13:38 07/09/24 13:57 Temperature Temperature Source Pulse Rate 85 Pulse Rate [Apical] 86 Pulse Rate from SpO2 Sensor 86 Pulse Rhythm Pulse Rhythm [Apical] Regular Pulse Strength Pulse Strength [Apical] Normal Respiratory Rate 16 16 Respiratory Effort / Characteristics Non-Labored Respiratory Depth Normal Respiratory Pattern Blood Pressure 134/77 Blood Pressure [Left Arm] Blood Pressure Mean 99 Blood Pressure Mean [Left Arm] Blood Pressure Position Blood Pressure Position [Left Arm] Pulse Oximetry 100 100 Oxygen Delivery Method Room Air Sepsis Recent Fever Within 48 Hours Sepsis New/Unexplained Change in Mental Status Sepsis Action Taken by Nursing 07/09/24 14:00 07/09/24 14:01 07/09/24 14:01 Temperature Temperature Source Pulse Rate Pulse Rate [Apical] 85 Pulse Rate from SpO2 Sensor Pulse Rhythm Pulse Rhythm [Apical] Regular Pulse Strength Pulse Strength [Apical] Normal Respiratory Rate 17 Respiratory Effort / Characteristics Non-Labored Respiratory Depth Normal Respiratory Pattern Regular Blood Pressure 112/68 112/68 Blood Pressure [Left Arm] Blood Pressure Mean 75 75 Blood Pressure Mean [Left Arm] Blood Pressure Position Blood Pressure Position [Left Arm] Pulse Oximetry 100 Oxygen Delivery Method Room Air Sepsis Recent Fever Within 48 Hours Sepsis New/Unexplained Change in Mental Status Sepsis Action Taken by Nursing 07/09/24 14:01 07/09/24 14:06 Temperature Temperature Source Pulse Rate 83 Pulse Rate [Apical] Pulse Rate from SpO2 Sensor 83 Pulse Rhythm Pulse Rhythm [Apical] Pulse Strength Pulse Strength [Apical] Respiratory Rate 13 Respiratory Effort / Characteristics Respiratory Depth Respiratory Pattern Blood Pressure 112/68 Blood Pressure [Left Arm] Blood Pressure Mean 75 Blood Pressure Mean [Left Arm] Blood Pressure Position Blood Pressure Position [Left Arm] Pulse Oximetry 100 Oxygen Delivery Method Room Air Sepsis Recent Fever Within 48 Hours Sepsis New/Unexplained Change in Mental Status Sepsis Action Taken by Nursing Laboratory Data 07/09/24 11:57 07/09/24 11:57 Lab Results 07/09/24 Range/Units 11:57 WBC 6.69 (4.8-10.8) K/ul RBC 4.85 (4.70-6.10) M/uL Hgb 14.5 (14.0-18.0) g/dl Hct 43.3 (42.0-52.0) % MCV 89.3 (80.0-100.0) fL MCH 29.9 (25.0-34.0) pg MCHC 33.5 (32.0-36.0) g/dL RDW Std Deviation 43.2 (36.4-46.3) fL RDW Coeff of Maynor 13.2 (11.5-14.5) % Plt Count 170 (130-400) K/uL MPV 10.3 (9.4-12.4) fL Immature Gran % (Auto) 0.1 % Neut % (Auto) 60.8 % Lymph % (Auto) 24.8 % [place] % (Auto) 8.8 % Eos % (Auto) 4.6 % Baso % (Auto) 0.9 % Neut # (Auto) 4.06 (1.40-6.50) K/uL Lymph # (Auto) 1.66 (1.20-3.40) K/uL [place] # (Auto) 0.59 (0.11-0.59) K/uL Eos # (Auto) 0.31 (0.00-0.50) K/uL Baso # (Auto) 0.06 (0.00-0.20) K/uL Immature Gran # (Auto) 0.01 (0.01-0.20) K/uL Sodium 139 (136-145) mmol/L Potassium 4.1 (3.5-5.1) mmol/L Chloride 107 (98-107) mmol/L Carbon Dioxide 25 (21-32) mmol/L Anion Gap 7 (3-11) BUN 17 (6-23) mg/dl Creatinine 0.90 (0.6-1.4) mg/dl Est Cr Clr Drug Dosing 95.6 ml/min Est GFR ( Amer) 100.6 ml/min Est GFR (Non-Af Amer) 86.8 ml/min BUN/Creatinine Ratio 18.9 (10-20) Glucose 121 H (70-99(Fasting)) mg/dl Calcium 9.1 (8.6-10.3) mg/dl Total Bilirubin 0.5 (0.2-1.0) mg/dl AST 24 (13-39) U/L ALT 29 (7-52) U/L Alkaline Phosphatase 60 (34-104) U/L Troponin I High Sens 9.6 (0-20) pg/ml Total Protein 7.5 (6.0-8.3) gm/dl Albumin 4.5 (3.4-5.0) gm/dl Globulin 3.0 (2.5-4.0) gm/dl Albumin/Globulin Ratio 1.5 (0.9-2) Administered Medications Discontinued Medications Diphtheria/Pertussis/Tetanus Vacc (Diphther/Tetan/Pertus Vaccine (Tdap, Adol/Adult) 0.5ml) 0.5 ml IM .ONCE ONE Stop: 07/09/24 15:20 Last Admin: 07/09/24 16:07 Dose: 0.5 ml Documented By: EWELINA Lidocaine (Lidocaine/Epineph/Tetracaine 1 Ea Syr) 1 each EXT NOW STA Stop: 07/09/24 12:49 Last Admin: 07/09/24 13:17 Dose: 1 each Documented By: SRL Imaging Data Radiologist's Impression: Cervical Spine CT 07/09/24 11:[address] DOSE: HISTORY: Trauma TECHNIQUE: Multiaxial CT images of the cervical spine were performed and reformatted in the sagittal and coronal plane without the use of contrast. A dose lowering technique was utilized adhering to the principles of ALARA. COMPARISON: None. FINDINGS: No fractures. No subluxation. Prevertebral soft tissues and the C1-C2 interval are intact. No pneumothorax. Moderate degenerative disc disease at C5- C6 and C6-C7 with straightening of the cervical spine. IMPRESSION: No fractures within the cervical spine. ACT 112: Negative or not required by law. Electronically signed by: Barak Oseguera M.D. 07/09/2024 12:35 PM Chest X-Ray 07/09/24 11:50 XR chest 1V portable HISTORY: syncope COMPARISON: Chest 10/17/2023 FINDINGS: No pneumothorax. No pleural effusions. The lungs are clear. The cardiac silhouette is top normal in size. No evidence for pulmonary edema. No acute fractures. IMPRESSION: No acute process. ACT 112: Negative or not required by law. Electronically signed by: Barak Oseguera M.D. 07/09/2024 12:[address] 07/09/24 11:50 CT OF THE HEAD WITHOUT CONTRAST CLINICAL HISTORY: Trauma. COMPARISON STUDY: Sinus CT April 09, 2009. CT DOSE: 1180.22 mGy.cm TECHNIQUE: Helical axial images of the head were obtained without IV contrast. Automated exposure control was utilized for the study. A dose lowering technique was utilized adhering to the principles of ALARA. FINDINGS: No acute intracranial hemorrhage, midline shift or mass effect is present. The ventricular system is unremarkable. The basal cisterns are patent. No extra-axial collections are present. There are no findings to suggest acute dural sinus thrombosis or acute territorial infarct. There are no calvarial fractures. Ethmoid sinus mucosal thickening is present. IMPRESSION: 1. No acute intracranial findings. 2. No calvarial fractures. ACT 112: Negative or not required by law. Electronically signed by: [place] Vaca M.D. 07/09/2024 12:31 PM Discharge Plan Visit Data Chief Complaint: Trauma Stated Complaint: SYNCOPE ED Provider: Misha Borden Discharge Problem: Syncope, Coronary artery disease, Laceration of scalp Patient Disposition: Admitted As Inpatient Discharge Instructions Interventions: ED Discharge Assessment Last Done: 07/09/24 16:36 Discharge Problem: Syncope Qualifiers: Syncope type: unspecified Qualified Code(s): R55 - Syncope and collapse Coronary artery disease Qualifiers: Coronary Disease-Associated Artery/Lesion type: unspecified vessel or lesion type [place] vs. transplanted heart: unspecified whether three affiliated or transplanted heart Associated angina: unspecified whether angina present Qualified Code(s): I 25.10 - Atherosclerotic heart disease of three affiliated coronary artery without angina pectoris Laceration of scalp Qualifiers: Encounter type: initial encounter Qualified Code(s): S01.01XA - Laceration without foreign body of scalp, initial encounter
[2024-07-09 12:24] LABS: Basophils # (auto) 0.06 K/uL (0.00-0.20); Basophils % (auto) 0.9 %; Eosinophils # (auto) 0.31 K/uL (0.00-0.50); Eosinophils % (auto) 4.6 %; Hematocrit (blood only) 43.3 % (42.0-52.0); Hemoglobin 14.5 g/dl (14.0-18.0); Immature Granulocytes # (auto) 0.01 K/uL (0.01-0.20); Immature Granulocytes % (auto) 0.1 %; Lymphocytes # (auto) 1.66 K/uL (1.20-3.40); Lymphocytes % (auto) 24.8 %; Mean Corpuscular Hemoglobin 29.9 pg (25.0-34.0); Mean Corpuscular Hgb Conc 33.5 g/dL (32.0-36.0); Mean Corpuscular Volume 89.3 fL (80.0-100.0); Mean Platelet Volume 10.3 fL (9.4-12.4); Monocytes # (auto) 0.59 K/uL (0.11-0.59); Monocytes % (auto) 8.8 %; Neutrophils # (auto) 4.06 K/uL (1.40-6.50); Neutrophils % (auto) 60.8 %; Platelet Count 170 K/uL (130-400); RDW Coefficient of Variation 13.2 % (11.5-14.5); RDW Standard Deviation 43.2 fL (36.4-46.3); Red Blood Count 4.85 M/uL (4.70-6.10); White Blood Count 6.69 K/ul (4.8-10.8)
--- NOTE | 2024-07-09 12:32 | CT Scan Report ---
CT OF THE HEAD WITHOUT CONTRAST CLINICAL HISTORY: Trauma. COMPARISON STUDY: Sinus CT April 09, 2009. CT DOSE: 1180.22 mGy.cm TECHNIQUE: Helical axial images of the head were obtained without IV contrast. Automated exposure con trol was utilized for the study. A dose lowering technique was utilized adhering to the principles o f ALARA. FINDINGS: No acute intracranial hemorrhage, midline shift or mass effect is present. The ventricular system is unremarkable. The basal cisterns are patent. No extra-axial collections are present. There are no findings to suggest acute dural sinus thrombosis or acute territorial infarct. There are no ca lvarial fractures. Ethmoid sinus mucosal thickening is present. IMPRESSION: 1. No acute intracranial findings. 2. No calvarial fractures. ACT 112: Negative or not required by law. Electronically signed by: [place] Vaca M.D. 07/09/2024 12:31 PM
--- NOTE | 2024-07-09 12:36 | CT Scan Report ---
CERVICAL SPINE CT CT DOSE: HISTORY: Trauma TECHNIQUE: Multiaxial CT images of the cervical spine were performed and reformatted in the sagittal and coronal plane without the use of contrast. A dose lowering technique was utilized adhering to th e principles of ALARA. COMPARISON: None. FINDINGS: No fractures. No subluxation. Prevertebral soft tissues and the C1-C2 interval are intact. No pneumothorax. Moderate degenerative disc disease at C5-C6 and C6-C7 with straightening of the cerv ical spine. IMPRESSION: No fractures within the cervical spine. ACT 112: Negative or not required by law. Electronically signed by: Barak Oseguera M.D. 07/09/2024 12:35 PM
[2024-07-09 12:39] LABS: Albumin Globulin Ratio 1.5 (0.9-2); Albumin Level 4.5 gm/dl (3.4-5.0); BUN Creatinine Ratio 18.9 (10-20); Bilirubin,Total 0.5 mg/dl (0.2-1.0); Calcium 9.1 mg/dl (8.6-10.3); Creatinine Clr Calc Pharmacy 95.6 ml/min; Est GFR (African American) 100.6 ml/min; Est GFR (Non-African American) 86.8 ml/min; Potassium 4.1 mmol/L (3.5-5.1); Total Protein 7.5 gm/dl (6.0-8.3)
--- NOTE | 2024-07-09 12:43 | XRay Report ---
XR chest 1V portable HISTORY: syncope COMPARISON: Chest 10/17/2023 FINDINGS: No pneumothorax. No pleural effusions. The lungs are clear. The cardiac silhouette is top n ormal in size. No evidence for pulmonary edema. No acute fractures. IMPRESSION: No acute process. ACT 112: Negative or not required by law. Electronically signed by: Barak Oseguera M.D. 07/09/2024 12:41 PM
[2024-07-09 13:16] LABS: Troponin I High Sensitivity 9.6 pg/ml (0-20)
[2024-07-09] MEDS: LIDOCAINE/EPINEPH/TETRACAINE 1 EA SYR EXT STA (13:17)
--- NOTE | 2024-07-09 14:34 | History & Physical Report ---
Date of Service July 09, 2024 Assessment & Plan (1) Syncope: Plan: Syncope x 2 Troponin negative. Occurred while standing Patient did have a prodrome of at least a few seconds to a minute before he passed out, then passed out twice. Did recently switch him to take his blood pressure medicines in late CThead/C-spine are without acute finding/trauma CXR without acute finding EKG: Sinus bradycardia, no acute ST segment elevation/depressions or T wave in versions compared to 10/2023. BP is normal on admission. He does not appear volume contracted. No RAJAN. No signs of infection Monitor on telemetry overnight. No tachycardia, tachypnea, hypoxia, right heart strain, troponin elevation, or pleuritic pain to suggest PE ? Orthostatic, and with not eating and also moving his blood pressure medicines up to 7 AM rather than taking them midday. Will temporarily dose reduce losartan by half, following telemetry overnight. Orthostatic vitals pending (2) Ischemic cardiomyopathy: Plan: Ischemic cardiomyopathy Cath 10/2023: Severe multivessel disease. 1X RENE to LAD, 1X RENE to LCx. Last echo 01/2024: EF low normal 50-55%, mild residual LAD territory hypokinesis. Significant improvement compared to prior Continue DAPT Home medications continued (3) Benign essential hypertension: Plan: Hypertension Continue losartan/metoprolol - Losartan dose reduced due to borderline low BP and ?orthostasis (4) Atherogenic dyslipidemia: Plan: Hyperlipidemia Continue statin Plan DVT prophylaxis: From ago prophylaxis deferred due to head laceration with acute bleeding, admit on SCDs. Can resume pharmacal prophylaxis after 12 hours Disposition: PCU due to recurrent syncope CODE STATUS: Full code Diet: Heart healthy History of Present Illness Primary Care Provider: Tristin Lopez DO Gonzalo is a 69-year-old male with a past history of ischemic cardiomyopathy, hyperlipidemia, hypertension who presents to the ER for recurrent syncope. 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 He has a prior history of CAD on DAPT. Last echo 01/30/2024 with improvement in EF to 50-55%. 1 RENE to 95% LAD stenosis, and 1 RENE to mid vessel circumflex 99% stenosis 10/2023 Gonzalo is seen with his Ro at the bedside. REports he took all four of his medications, brilinta/aspirin/statin/MTP after breakfast. Mostly works through [employer] but had 2 classes in person today. Left the house at 745am feeling normally. When he took his pills Sunday he felt normal/fine. Moved his pills up to 745am this morning but hadn't eaten breakfast. 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 [place] lightheaded and dizzy, had a few seconds of pre- syncopal prodrome and then passed out. 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 Reports he felt OK afterwards. Denies passing out a third time. First class was 830am-10am went OK, was standing for his 10-11am class andthinks he was standing for 10-20 minutes mika when he passed out.Does not feel dehdrated today, did have a large cup of coffee. No orthopnea No leg swelling Denies past history of syncopal/presyncopal events Denies chest pain, chest pressure, shortness of breath No fevers, chills, or sweats No cough No nausea/vomiting Medical History: Reviewed Medications: Reviewed Surgical History: Reviewed Family history: Reviewed Allergies: Reviewed Social History: No tobacco use, rare social ETOH use. Code Status: Full Code Allergies Allergy/AdvReac Type Severity Reaction Status Date / Time No Known Allergies Allergy Verified 04/09/24 11:08 Home Medications Medication Instructions Recorded Confirmed Type omega 6-qlr-hlo-fish oil 1,000 mg 1 cap PO DAILY 10/13/23 04/09/24 History (120 mg-180 mg) capsule (Fish Oil) psyllium husk 3.4 gram/5.4 gram 1 tbsp PO DAILY 10/13/23 04/09/24 History oral powder (Metamucil) ticagrelor 90 mg tablet (Brilinta) 90 mg PO BID #180 tabs 10/14/23 04/09/24 Rx nitroglycerin 0.4 mg sublingual 0.4 mg sublingual Q5M PRN Chest 10/17/23 04/09/24 History tablet (Nitrostat) pain losartan 25 mg tablet 25 mg PO DAILY #90 tabs 11/14/23 04/09/24 Rx aspirin 81 mg tablet,delayed 81 mg PO QAM #90 tabs 12/14/23 04/09/24 Rx release metoprolol succinate 50 mg 50 mg PO DAILY #30 tabs 02/04/24 04/09/24 Rx tablet,extended release 24 hr atorvastatin 40 mg tablet 40 mg PO QAM #90 tabs 04/28/24 Rx Past Med/Surg History Problem List (Updated 07/09/24 @ 14:32 by Estuardo Cordero MD) Syncope Elevated hemoglobin A1c Benign essential hypertension Atherogenic dyslipidemia Ischemic cardiomyopathy Coronary artery disease Medical History NSTEMI (non-ST elevated myocardial infarction) Acute congestive heart failure Myocardial Infarction Hyperlipidemia Acute coronary syndrome Chest pain Kidney stone Surgical History History of heart artery stent History of colonoscopy Family History Mother Breast cancer Cancer Denies family history of Ovarian cancer Prostate cancer Myocardial infarction Lung cancer Colorectal cancer Social History Smoking Status: Former smoker Tobacco Type: Cigarettes Age Started Using Tobacco: 18; Age Quit Using Tobacco: 20; Cigarettes Per Day: 1-2 cigarettes per day; Second Hand Exposure: No; Do You Dip or Chew Tobacco: No; Hx Alcohol Use: Yes Alcohol type: wine Alcohol Intake Frequency: Monthly or Less Hx Substance Use: No Preferred Language: Beninese Communication Ability: Effective Visual Impairment: Limited Hearing Ability: Normal Microbiology Manager Required: No Beliefs That Will Affect Care: None marital status: Current Living Situation: Spouse Current Living Situation Comment: spouse and 1 child current occupational status: employed 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 NAD. Cooperative. HEENT: Posterior scalp with ~2cm scalp laceration. Vision/hearing grossl yintact. Eom intact without nystagmus. PERLAA. No neck pain Pulm: CTAB A&P. -wheezes, -rales, -rhonchi. Symmetrical chest rise. No increased work of breathing. No respiratory distress. Cardiac: RRR, -mrg. Radial pulses intact and symmetrical. Abdominal: Nontender, nondistended, soft. BS present. Ext: warm/dry. No edema. Moves edgar extremities equally Results & Data Results & Data Vital Signs (Past 12 Hours) Vital Signs Temp Pulse Pulse Resp BP BP Pulse Ox 07/09/24 14:06 83 13 100 07/09/24 14:01 07/09/24 14:01 11207/09/24 14:01 07/09/24 14:00 85 17 100 07/09/24 13:57 85 16 100 07/09/24 13:38 86 16 100 07/09/24 13:30 134/77 07/09/24 13:30 86 14 07/09/24 13:15 74 17 100 07/09/24 12:38 85 16 112/68 100 07/09/24 12:33 78 12 100 07/09/24 12:30 127/87 07/09/24 12:30 127/87 07/09/24 12:22 69 07/09/24 12:18 70 18 100 07/09/24 12:00 116/86 07/09/24 11:50 62 18 97 07/09/24 11:38 62 18 120/81 97 07/09/24 11:38 07/09/24 11:38 62 18 120/81 97 07/09/24 11:38 36.5 C 62 18 120/81 97 07/09/24 11:38 36.5 C 62 18 120/81 97 O2 Del Method 07/09/24 14:06 Room Air 07/09/24 14:01 07/09/24 14:01 07/09/24 14:01 07/09/24 14:00 Room Air 07/09/24 13:57 07/09/24 13:38 Room Air 07/09/24 13:30 07/09/24 13:30 07/09/24 13:15 07/09/24 12:38 Room Air 07/09/24 12:33 07/09/24 12:30 07/09/24 12:30 07/09/24 12:22 07/09/24 12:18 07/09/24 12:00 07/09/24 11:50 Room Air 07/09/24 11:38 Room Air 07/09/24 11:38 Room Air 07/09/24 11:38 Room Air 07/09/24 11:38 Room Air 07/09/24 11:38 Room Air PG Care Time/CCT Total # of Minutes Spent Total Time Spent with Patient: Total time spent is greater than 50% in coordination of care (as documented) at patient's floor/unit and/or counseling patient: Coding Level of Care Code 86966 INT INP/OBS CARE 375MIN Diagnoses Syncope R55 Ischemic cardiomyopathy I25.5 Benign essential hypertension I10 Atherogenic dyslipidemia E78.5
[2024-07-09] MEDS: DIPHTHER/TETAN/PERTUS Vaccine (Tdap, Adol/Adult) 0.5mL IM ONE (16:07)
[2024-07-09] MEDS ORDERED: POLYETHYLENE (MIRALAX) 17 GM PACK PO PRN (16:35)
[2024-07-09] MEDS ORDERED: NITROGLYCERIN SL 0.4 MG/TAB TAB SL PRN (16:35)
[2024-07-09] MEDS ORDERED: ACETAMINOPHEN 325 MG TAB PO PRN (16:35)
[2024-07-09] MEDS: TICAGRELOR 90 MG TAB PO SCH (21:36)
[2024-07-09] MEDS: METOPROLOL SUCC 50MG EXT REL TAB PO SCH (23:03)
[2024-07-10 05:27] LABS: Basophils # (auto) 0.03 K/uL (0.00-0.20); Basophils % (auto) 0.4 %; Eosinophils # (auto) 0.14 K/uL (0.00-0.50); Eosinophils % (auto) 1.9 %; Hematocrit (blood only) 42.7 % (42.0-52.0); Hemoglobin 14.2 g/dl (14.0-18.0); Immature Granulocytes # (auto) 0.02 K/uL (0.01-0.20); Immature Granulocytes % (auto) 0.3 %; Lymphocytes # (auto) 1.66 K/uL (1.20-3.40); Lymphocytes % (auto) 22.5 %; Mean Corpuscular Hemoglobin 29.7 pg (25.0-34.0); Mean Corpuscular Hgb Conc 33.3 g/dL (32.0-36.0); Mean Corpuscular Volume 89.3 fL (80.0-100.0); Mean Platelet Volume 10.2 fL (9.4-12.4); Monocytes # (auto) 0.63 K/uL (0.11-0.59); Monocytes % (auto) 8.5 %; Neutrophils % (auto) 66.4 %; Platelet Count 172 K/uL (130-400); RDW Coefficient of Variation 13.2 % (11.5-14.5); RDW Standard Deviation 43.3 fL (36.4-46.3); Red Blood Count 4.78 M/uL (4.70-6.10); White Blood Count 7.38 K/ul (4.8-10.8)
[2024-07-10 05:34] LABS: BUN Creatinine Ratio 17.9 (10-20); Creatinine Clr Calc Pharmacy 110.3 ml/min; Est GFR (African American) 106.7 ml/min; Est GFR (Non-African American) 92.1 ml/min
--- NOTE | 2024-07-10 07:42 | Hospitalist Progress Note ---
Date of Service July 10, 2024 Assessment & Plan (1) Syncope: Plan: Syncope : Likely orthostatic 2 episodes of syncope back to back; Prodromal symptoms + Admitted for observation in ER. Troponin negative. Trauma Inv: NAD Chest Xray : NAD Laceration repaired EKG: Sinus bradycardia, no acute ST segment elevation/depressions or T wave inversions compared to 10/2023. Did recently switch him to take his blood pressure medicine. BP is normal on admission. He does not appear volume contracted. No RAJAN. No signs of infection Overnight telemetry: NSR No tachycardia, tachypnea, hypoxia, right heart strain, troponin elevation, or pleuritic pain to suggest PE Likely Orthostatic, and with not eating and also moving his blood pressure medicines up to 7 AM rather than taking them midday. Will temporarily dose reduce losartan by half, following telemetry overnight. Orthostatic vitals pending (2) Ischemic cardiomyopathy: Plan: Ischemic cardiomyopathy Cath 10/2023: Severe multivessel disease. 1X RENE to LAD, 1X RENE to LCx. Last echo 01/2024: EF low normal 50-55%, mild residual LAD territory hypokinesis. Significant improvement compared to prior Continue DAPT Home medications continued (3) Benign essential hypertension: Plan: Hypertension Continue losartan/metoprolol - Losartan dose reduced due to borderline low BP and ?orthostasis (4) Atherogenic dyslipidemia: Plan: Hyperlipidemia Continue statin Plan DVT prophylaxis: From ago prophylaxis deferred due to head laceration with acute bleeding, admit on SCDs. Can resume pharmacal prophylaxis after 12 hours Disposition: PCU due to recurrent syncope CODE STATUS: Full code Diet: Heart healthy Admission and Anticipated Discharge Date Admission Date: July 09, 2024 Zackary Sánchez is a 69-year-old male with a past history of ischemic cardiomyopathy, hyperlipidemia, hypertension who presents to the ER for recurrent syncope. 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 He has a prior history of CAD on DAPT. Last echo 01/30/2024 with improvement in EF to 50-55%. 1 RENE to 95% LAD stenosis, and 1 RENE to mid vessel circumflex 99% stenosis 10/2023 emergent cardiac catheterization demonstrating a normal left main, acute LAD stenosis of 95% with thrombus for which he received a 3.5 x 23 mm drug-eluting stent. Gonzalo is seen with his Connie at the bedside. REports he took all four of his medications, brilinta/aspirin/statin/MTP after breakfast. 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 Left the house at 745am feeling n ormally. When he took his pills Sunday he felt normal/fine. Moved his pills up to 745am this morning but hadn't eaten breakfast. 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 [place] lightheaded and dizzy, had a few seconds of pre- syncopal prodrome and then passed out. 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 Reports he felt OK afterwards. Denies passing out a third time. First class was 830am-10am went OK, was standing for his 10-11am class andthinks he was standing for 10-20 minutes mika when he passed out.Does not feel dehydrated today, did have a large cup of coffee. No orthopnea No leg swelling Denies past history of syncopal/presyncopal events Denies chest pain, chest pressure, shortness of breath No fevers, chills, or sweats No cough No nausea/vomiting Today morning he's doing fine. Ate his breakfast, slept well. He had no syncope after coming to ED. No chest-pain/ SOB/ heaviness in chest. No recent stress, no dehydration he is aware of. No neck tightness, He feels this episode of syncope could highly be because he missed breakfast in morning yesterday, and took his pills in before he went for lecture. No LOC, abnormal body movements, nausea, vomiting, sweating. No previous history Review of Systems Review of Systems: As pe HPI Physical Exam Physical Exam: General: A&Ox3. NAD. Cooperative. HEENT: Healthy looking repaired scalp laceration. Vision/hearing grossly intact. EOM intact without nystagmus. No neck pain Pulm: CTAB A&P. -wheezes, -rales, -rhonchi. No increased work of breathing. No respiratory distress. Cardiac: S1S2M0, Radial pulses intact and symmetrical. Carotid pulse bilateral symmetrical no bruits. Abdominal: Nontender, nondistended, soft. BS present. Ext: Warm and dry Results & Data Results & Data Vital Signs (Past 12 Hours) Vital Signs Pulse Resp BP Pulse Ox O2 Del Method 07/10/24 06:00 64 16 111/83 94 Room Air 07/10/24 03:00 65 12 98 Room Air 07/09/24 23:00 73 17 133/71 97 Room Air 07/09/24 21:00 71 18 127/86 94 Room Air (1) Syncope Syncope type: unspecified Qualified Code(s): R55 - Syncope and collapse
[2024-07-10] MEDS: OMEGA-3 (PURIFIED FISH OIL) 1 GM CAP PO SCH (08:38)
[2024-07-10] MEDS: LOSARTAN POTASSIUM 25 MG TAB PO SCH (08:38)
[2024-07-10] MEDS ORDERED: METOPROLOL SUCC 50MG EXT REL TAB PO SCH (09:00)
[2024-07-10] MEDS: ATORVASTATIN 40 MG TAB PO SCH (10:50)
[2024-07-10] MEDS: ASPIRIN 81 MG ECTAB PO SCH (10:50)
--- NOTE | 2024-07-10 14:11 | Discharge Summary ---
Date of Service July 10, 2024 Admission HPI Per Admitting Provider Gonzalo is a 69-year-old male with a past history of ischemic cardiomyopathy, hyperlipidemia, hypertension who presents to the ER for recurrent syncope. 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 He has a prior history of CAD on DAPT. Last echo 01/30/2024 with improvement in EF to 50-55%. 1 RENE to 95% LAD stenosis, and 1 RENE to mid vessel circumflex 99% stenosis 10/2023 Gonzalo is seen with his Connie at the bedside. Reports he took all four of his medications, brilinta/aspirin/statin/MTP after breakfast. 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 Left the house at 745am feeling normally. When he took his pills Sunday he felt normal/fine. Moved his pills up to 745am this morning but hadn't eaten breakfast. 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 [place] lightheaded and dizzy, had a few seconds of pre- syncopal prodrome and then passed out. 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 Reports he felt OK afterwards. Denies passing out a third time. 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 No orthopnea No leg swelling Denies past history of syncopal/presyncopal events Denies chest pain, chest pressure, shortness of breath No fevers, chills, or sweats No cough No nausea/vomiting Medical History: Reviewed Medications: Reviewed Surgical History: Reviewed Family history: Reviewed Allergies: Reviewed Social History: No tobacco use, rare social ETOH use. Code Status: Full Code Admission Exam Per Admitting Provider General: A&Ox3. NAD. Cooperative. HEENT: Posterior scalp with ~2cm scalp laceration. Vision/hearing grossl yintact. Eom intact without nystagmus. PERLAA. No neck pain Pulm: CTAB A&P. -wheezes, -rales, -rhonchi. Symmetrical chest rise. No increased work of breathing. No respiratory distress. Cardiac: RRR, -mrg. Radial pulses intact and symmetrical. Abdominal: Nontender, nondistended, soft. BS present. Ext: warm/dry. No edema. Moves edgar extremities equally Principal Diagnosis Orthostatic Syncope Discharge Exam General: A&Ox3. NAD. Cooperative. HEENT: Repaired healthy laceration wound.Vision/hearing grossly intact. EOM intact without nystagmus. PERLAA. No neck pain Pulm: CTAB A&P. -wheezes, -rales, -rhonchi. Symmetrical chest rise. No increased work of breathing. No respiratory distress. Cardiac:S1S2 M0 Radial pulses intact and symmetrical. Abdominal: Nontender, nondistended, soft. BS present. Ext: warm/dry. No edema. Moves all his extremities equally Discharge Data Allergies Allergy/AdvReac Type Severity Reaction Status Date / Time No Known Allergies Allergy Verified 07/09/24 15:04 Consultations 07/09/24 13:15 ED Decision to Admit Stat Ordered Studies 07/09/24 11:50 CT cervical spine wo con Stat CT head/brain wo con Stat Hospital Course (1) Syncope: (2) Ischemic cardiomyopathy: (3) Benign essential hypertension: (4) Atherogenic dyslipidemia: Plan 1. Syncope : Likely orthostatic 2 episodes of syncope back to back; Prodromal symptoms + Admitted for observation in ER. Troponin negative. Trauma Inv: NAD Chest Xray : NAD Laceration repaired EKG: Sinus bradycardia, no acute ST segment elevation/depressions or T wave inversions compared to 10/2023. Did recently switch him to take his blood pressure medicine. BP is normal on admission. He does not appear volume contracted. No RAJAN. No signs of infection Overnight telemetry: NSR w/o arrhythmia or block No tachycardia, tachypnea, hypoxia, right heart strain, troponin elevation, or pleuritic pain to suggest PE. 2. Ischemic cardiomyopathy Cath 10/2023: Severe multivessel disease. 1X RENE to LAD, 1X RENE to LCx. Last echo 01/2024: EF low normal 50-55%, mild residual LAD territory hypokinesis. Significant improvement compared to prior Continue DAPT Home medications continue --- Would consider additional evaluation with Echocardiogram +/- Stress Testing if syncope persistent (3) Benign essential hypertension: Continue losartan/metoprolol upon discharge at dosing as above --- Syncope considered 2/2 hypotension/orthostasis (4) Atherogenic dyslipidemia: Hyperlipidemia Continue statin Total Time Total Time Spent Total Time Spent (In Minutes): <30 Discharge Plan Discharge Items Patient Disposition: Home - Self-Care Reason For Visit: SYNCOPE X2 Discharge Diagnosis: Syncope; likely orthostasis Activity: Per Instructions section Non-emergency contact: Primary Care Provider and Childhood Development Teacher Call non-emergency contact if: your symptoms worsen Follow-up/Referrals: Tristin Lopez, [Primary Care Provider] - 07/15/24 2:45 pm (Scheduled with Prosper De Leon PA-C on 07/15/24 at 2:45 pm) Diet: Heart Healthy Addtl Attending Provider Instructions: Your possible cause of syncope is positional secondary to multiple factor. Most frequent cause of it would be dehydration and you taking your blood pressure pill at morning time. I would recommend you to take those pill on your usual time and not to skip breakfast in the morning. 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 Please follow up outpatient with your PCP within 1-2 weeks of discharge. Pending Studies at Discharge: No Stand-Alone Forms: [facility], Smoking Cessation Medications and DC Order Prescriptions: New losartan 25 mg tablet 25 mg PO DAILY Qty: 90 0RF Continued aspirin 81 mg tablet,delayed release (DR/EC) 81 mg PO QAM Qty: 90 3RF atorvastatin 40 mg tablet 40 mg PO QAM Qty: 90 3RF omega 7-rjc-uff-fish oil [Fish Oil] 1,000 mg (120 mg-180 mg) Capsule 1 cap PO DAILY Metamucil 3.4 gram/5.4 gram Powder 1 tbsp PO DAILY Rx Instructions: mix into at least 8 oz of water or juice before administering Brilinta 90 mg Tablet 90 mg PO BID Qty: 180 3RF nitroglycerin [Nitrostat] 0.4 mg tablet, sublingual 0.4 mg sublingual Q5M MDD 3 PRN (Reason: Chest pain) metoprolol succinate 50 mg tablet extended release 24 hr 50 mg PO HS Held losartan 25 mg tablet 25 mg PO DAILY Qty: 90 3RF Hold Instructions: Resume on 08/08/25. Discharge Orders: Discharge Order (Routine); Ordered 07/10/24 Ordered By: Olinda Adkins/Other Patient Handouts: Syncope Tx Heart Admission Data Admit Date/Time: 07/09/24 15:03 Attending Provider: Misha Mckenna Admit Provider: Estuardo Cordero Primary Care Provider: Tristin Lopez Other Providers: Estuardo Cordero Other Interventions: Discharge Summary Assessment (RN) Last Done: 07/10/24 16:15 Supervising Physician Co-Signing Physician Notes I personally examined the patient and verified all omer points of history and exam, discussed case, and agree with decision making with Dr Love feeling better and feels up to going home. Extensive discussion with patient and . Vitals noted, in general he is awake and alert pleasant no distress. HEENT normocephalic atraumatic mucous membranes moist. Breathing unlabored no accessory muscle use good effort. Skin without rashes pallor or icterus. Neuro without focal deficits. Echocardiogram noted. Syncopeseems to have been orthostaticrisks being taking his blood pressure medicines early in the morning, only drinking coffee/being dehydrated, and prolonged standing without much muscle contraction. Safe/stable for home. Shift medications to later in the day, hydrate (extensively discussed) outp atient follow-up. Otherwise as above
[2024-07-10 14:48] VITALS: RESP 16; TEMP 98.3; O2SAT 96
[2024-07-10 16:16] VITALS: BP 92/73; PULSE 68
--- NOTE | 2024-07-10 17:30 | XCELERA ---
[id number]
--- NOTE | 2024-07-10 19:00 | Billing Data ---
Date of Service July 10, 2024 Coding Level of Care Code 26597 IN/OBS DISCH 30 MIN/LESS
--- NOTE | 2024-07-11 21:49 | Electrocardiogram Report ---
Test Reason : Blood Pressure : */* mmHG Vent. Rate : 57 BPM Atrial Rate : 57 BPM P-R Int : 196 ms QRS Dur : 98 ms QT Int : 418 ms P-R-T Axes : 39 -29 68 degrees QTcB Int : 406 ms Sinus bradycardia Possible Anterior infarct (cited on or before 13-Oct-2023) Abnormal ECG When compared with ECG of 17-Oct-2023 06:25, Questionable change in initial forces of Septal leads Confirmed by Lio Ayoub ([id number]) on 07/11/2024 9:49:23 PM Referred By: Confirmed By: Lio Ayoub
== END 2024-07-10 16:55 | disposition home or self-care (01) ==
LOC: EDINP 11:38 → ED 11:38 → SUATTDRO 15:03 → EDINP 16:36 → 2E 07-10 14:31

== ENCOUNTER 2024-10-24 09:34 | Inpatient (IN) ==
--- NOTE | 2024-10-24 09:51 | Emergency Department Note ---
Impression & Plan Pneumonia, Coronary artery disease, COVID-19, Elevated troponin, Acute dyspnea ED Provider Note NAME: HIMA MARSHALL AGE: 69 SEX: M : 1955 ARRIVES VIA: Ambulance INFORMANT: Patient, ED PROVIDER(S): John Alvares MD CHIEF COMPLAINT: Shortness of breath, hypoxia MEDICAL DECISION MAKING: Patient presents due to concern for shortness of breath and reported hypoxia in clinic. IV was established and blood work was obtained. DuoNeb treatment ordered. BioFire also obtained along with a chest x-ray. Chest x-ray did show bilateral patchy infiltrates. This would be consistent with the patient's crackles throughout on exam. Patient's blood work shows a normal white count hemoglobin and platelet count. The patient's kidney function is unremarkable. Initial troponin 22.7. Patient is Positive for COVID-19. Patient did feel better after breathing treatments. Patient's chest x-ray does show bilateral pneumonia. Patient was hypoxic in clinic no steroids given its time as the patient's not been hypoxemic. Given the patient's medical comorbidities as well as 12 days of symptoms I did discuss with the on-call hospital service Dr. Leavitt and the patient was admitted to medicine service. I did speak with the patient's son who is an emergency department physician in [place]. He is also comfortable plan of care. Patient was admitted to the medicine service. Antibiotic treatment deferred to inpatient service. Discussion w/ other healthcare providers: Dr. Leavitt inpatient medicine service Prior /Outside records reviewed: none Differential diagnosis: Reactive airway disease, pneumonia, pneumothorax, COPD, CHF, ACS, pulmonary embolism, musculoskeletal, GERD as well as other pathologies were considered. Diagnostics, as interpreted by me: ECG: Normal sinus rhythm, rate of 87, normal intervals, normal axis no obvious STEMI. Cardiac monitoring: An order was placed for continuous cardiac monitoring. The monitor shows a rate of 87 with sinus rhythm. Patient was placed on pulse oximetry Medical decision rules: Curb 65 score Imaging studies: I informally interpreted the patient's chest x-ray shows bilateral pneumonia with formal report to follow. HPI: Patient presents due to concern for shortness of breath and reported hypoxia. The patient relates that he was seen in clinic today with a document of the hypoxia and he was referred here for further evaluation and treatment. Patient reports that he began having symptoms about 2 Mondays ago. The patient states that he had a bit of a scratchy throat and a dry nonproductive cough. Patient states that seem to be doing okay but then went to an [facility] walk-in clinic this past Sunday. He was prescribed amoxicillin. After discussing this with his son who is an emergency physician's [place] he recommended that he get tested prior to taking this. Patient tested positive for COVID on Sunday. No prescriptions at that time. The patient reportedly has had fever this past week with a Tmax of 102. Initially was taking ibuprofen in addition to Tylenol but his son told him that as he is taking Brilinta for prior history of CAD he is not to take the ibuprofen so has been taking Tylenol 1000 mg every 6 hours. Patient states that the fever and the fatigue has improved. He has had poor p.o. intake the last 4 to 5 days. Does report that his cough is slightly productive which is discolored brown sputum. Patient denies any leg swelling or calf pain no abdominal pain and no chest pain. The patient has not had any nausea vomiting or diarrhea. PAST MEDICAL HISTORY: See Below PAST SURGICAL HISTORY: See Below SOCIAL HISTORY: See Below HOME MEDICATIONS: See Below ALLERGIES: See Below VITALS: See Below PHYSICAL EXAMINATION: GENERAL: NAD, non-toxic. Wearing glasses, mask in place. EYE EXAM: Normal conjunctiva. PERRL, no anisocoria and EOM's grossly intact w/o pain. OROPHARYNX: Moist mucus membranes, grossly normal dentition. NECK: Trachea midline, no stridor. LUNGS: Crackles throughout without obvious wheezing or rhonchi, normal chest wall mechanics. HEART: NSR, no MRG. ABDOMEN: Abdomen soft, non-tender, no masses, no rebound or guarding. BACK: No CVA TTP. SKIN: No rashes and no bruising. UPPER EXTREMITIES: Upper extremities are grossly normal. LOWER EXTREMITIES: Grossly normal, no edema. Negative Homans' sign bilaterally. NEURO EXAM: A&O x3, cranial nerves II-XII grossly intact, normal speech, moves all 4 extremities. Past Med/Surg History Problem List (Updated 10/27/24 @ 23:09 by John Alvares MD) Acute dyspnea (Acute) Elevated troponin (Acute) COVID-19 (Acute) Pneumonia (Acute) Laceration of scalp (Acute) Syncope (Acute) Elevated hemoglobin A1c Benign essential hypertension Atherogenic dyslipidemia Ischemic cardiomyopathy Coronary artery disease (Acute) Medical History NSTEMI (non-ST elevated myocardial infarction) Acute congestive heart failure Myocardial Infarction Hyperlipidemia Acute coronary syndrome Chest pain Kidney stone Surgical History History of heart artery stent History of colonoscopy Family History Mother Breast cancer Cancer Denies family history of Ovarian cancer Prostate cancer Myocardial infarction Lung cancer Colorectal cancer Social History Smoking Status: Never smoker Tobacco Type: Cigarettes Age Started Using Tobacco: 18; Age Quit Using Tobacco: 20; packs per day: 0; Cigarettes Per Day: 1-2 cigarettes per day; Second Hand Exposure: No; Do You Dip or Chew Tobacco: No; Hx Alcohol Use: Yes Alcohol type: beer, wine and hard liquor Alcohol Intake Frequency: Monthly or Less Hx Substance Use: No Preferred Language: Kinyarwanda Communication Ability: Effective Visual Impairment: Limited Hearing Ability: Normal First Breaker Feeder Required: No Beliefs That Will Affect Care: None marital status: Current Living Situation: Spouse Current Living Situation Comment: spouse and 1 child current occupational status: employed 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 [employer] How many Children do You have: 4 Feels Safe at Home: Yes Childhood Exposure to Second-Hand Smoke: No Diet: regular caffeine: Yes (coffee & tea) during the past year weight has: remained stable Dental Care, Regularly: Yes Physical Activity Frequency: 3-4 Times per Week Physical Activity Frequency Comment: walking Seatbelt Use: always Sunscreen Use: No Assistive Devices: Glasses Allergies Allergies Allergy/AdvReac Type Severity Reaction Status Date / Time No Known Allergies Allergy Verified 10/27/24 11:05 Home Meds Home Medications Medication Instructions Recorded Confirmed psyllium husk 3.4 gram/5.4 gram 1 tbsp PO DAILY 10/13/23 10/27/24 oral powder (Metamucil) nitroglycerin 0.4 mg sublingual 0.4 mg sublingual Q5M PRN Chest 10/17/23 10/27/24 tablet (Nitrostat) pain metoprolol succinate 25 mg 50 mg PO DAILY 10/24/24 10/27/24 tablet,extended release 24 hr Previous Rx's Medication Instructions Recorded aspirin 81 mg tablet,delayed 81 mg PO QAM #90 tabs 08/08/24 release atorvastatin 40 mg tablet 40 mg PO QAM #90 tabs 08/08/24 losartan 25 mg tablet 25 mg PO DAILY #90 tabs 08/08/24 omega 5-pob-vxp-fish oil 1,000 mg 1 cap PO DAILY #90 caps 08/08/24 (120 mg-180 mg) capsule (Fish Oil) ticagrelor 90 mg tablet (Brilinta) 90 mg PO BID #180 tabs 08/08/24 azithromycin 250 mg tablet 250 mg PO DAILY #4 tabs 10/26/24 cefpodoxime 200 mg tablet 200 mg PO BID #12 tabs 10/26/24 Results & Data (ED) Vital Signs Vital Signs - 24 hr 10/24/24 09:37 10/24/24 09:37 Temperature 36.8 C Temperature Source Oral Pulse Rate 86 Respiratory Rate 26 H Respiratory Effort / Characteristics Nasal Congestion Respiratory Depth Normal Respiratory Pattern Regular Tachypnea Blood Pressure 153/95 H Blood Pressure Mean 114 Pulse Oximetry 96 96 Oxygen Delivery Method Room Air Room Air Sepsis Recent Fever Within 48 Hours No Sepsis New/Unexplained Change in Mental Status N/A Sepsis Action Taken by Nursing No Action Required Home Medications Current Medication List: was personally reviewed by me Laboratory Data Attestation: I reviewed the patient's lab results. 10/25/24 06:24 10/25/24 06:24 Lab Results 10/24/24 10/24/24 10/24/24 Range/Units 09:45 11:22 11:30 WBC 8.44 (4.8-10.8) K/ul RBC 4.90 (4.70-6.10) M/uL Hgb 14.5 (14.0-18.0) g/dl Hct 43.0 (42.0-52.0) % MCV 87.8 (80.0-100.0) fL MCH 29.6 (25.0-34.0) pg MCHC 33.7 (32.0-36.0) g/dL RDW Std Deviation 43.3 (36.4-46.3) fL RDW Coeff of Maynor 13.4 (11.5-14.5) % Plt Count 268 (130-400) K/uL MPV 8.8 L (9.4-12.4) fL Immature Gran % (Auto) 0.6 % Neut % (Auto) 79.9 % Lymph % (Auto) 10.9 % [place] % (Auto) 5.6 % Eos % (Auto) 2.6 % Baso % (Auto) 0.4 % Neut # (Auto) 6.75 H (1.40-6.50) K/uL Lymph # (Auto) 0.92 L (1.20-3.40) K/uL [place] # (Auto) 0.47 (0.11-0.59) K/uL Eos # (Auto) 0.22 (0.00-0.50) K/uL Baso # (Auto) 0.03 (0.00-0.20) K/uL Immature Gran # (Auto) 0.05 (0.01-0.20) K/uL PT 11.9 (9.0-12.0) Seconds INR 1.1 (0.9-1.1) APTT 29 (21-31) Seconds PTT Ratio 1.1 Sodium 134 L (136-145) mmol/L Potassium 4.1 (3.5-5.1) mmol/L Chloride 98 (98-107) mmol/L Carbon Dioxide 26 (21-32) mmol/L Anion Gap 10 (3-11) BUN 11 (6-23) mg/dl Creatinine 1.00 (0.6-1.4) mg/dl Est Cr Clr Drug Dosing 85.5 ml/min eGFR 81.47 BUN/Creatinine Ratio 11.0 (10-20) Glucose 115 H (70-99(Fasting)) mg/dl Calcium 9.1 (8.6-10.3) mg/dl Total Bilirubin 0.5 (0.2-1.0) mg/dl AST 87 H (13-39) U/L ALT 124 H (7-52) U/L Alkaline Phosphatase 63 (34-104) U/L Troponin I High Sens 22.7 H 18.6 D (0-20) pg/ml C-Reactive Protein 29.39 H (0-0.5) mg/dl Total Protein 8.1 (6.0-8.3) gm/dl Albumin 3.8 (3.4-5.0) gm/dl Globulin 4.3 H (2.5-4.0) gm/dl Albumin/Globulin Ratio 0.9 (0.9-2) Procalcitonin 0.48 (0-0.5) ng/ml Adenovirus (PCR) Not Detected (NotDetected) B. pertussis DNA (PCR) Not Detected (NotDetected) B.parapertussis DNA PCR Not Detected (NotDetected) C. pneumoniae DNA (PCR) Not Detected (NotDetected) Coronavirus OC43 (PCR) Not Detected (NotDetected) Coronavirus HKU1 (PCR) Not Detected (NotDetected) Coronavirus 229E (PCR) Not Detected (NotDetected) SARS-CoV-2 (PCR) DETECTED A (NotDetected) Coronavirus NL63 (PCR) Not Detected (NotDetected) Human Metapneumovir PCR Not Detected (NotDetected) Influenza Type A (PCR) Not Detected (NotDetected) Influenza Type B (PCR) Not Detected (NotDetected) M. pneumoniae (PCR) Not Detected (NotDetected) Parainfluenza 1 (PCR) Not Detected (NotDetected) Parainfluenza 2 (PCR) Not Detected (NotDetected) Parainfluenza 3 (PCR) Not Detected (NotDetected) Parainfluenza 4 (PCR) Not Detected (NotDetected) RSV (PCR) Not Detected (NotDetected) Entero/Rhino (PCR) Not Detected (NotDetected) Administered Medications Discontinued Medications Albuterol (Albut/Ipratrop 3mg/0.5mg Neb 3 Ml Vial) 6 ml INH NOW STA Stop: 10/24/24 10:04 Last Admin: 10/24/24 10:15 Dose: 6 ml Documented By: HONG Aspirin (Aspirin 81 Mg Ectab) 81 mg PO [facility] Stop: 11/24/24 08:59 Last Admin: 10/26/24 07:24 Dose: 81 mg Documented By: Admin: 10/25/24 09:06 Dose: 81 mg Documented By: ASHLEY Atorvastatin Calcium (Atorvastatin 40 Mg Tab) 40 mg PO [facility] Stop: 11/24/24 08:59 Last Admin: 10/26/24 07:23 Dose: 40 mg Documented By: Admin: 10/25/24 09:06 Dose: 40 mg Documented By: ASHLEY Azithromycin (Azithromycin 250 Mg Tab) 500 mg PO QAM [facility] Stop: 10/30/24 15:44 Last Admin: 10/26/24 07:24 Dose: 500 mg Documented By: Admin: 10/25/24 16:37 Dose: 500 mg Documented By: ASHLEY Dextromethorphan Polymer Complex (Dextromethorphan Polymr Complx 30 Mg/5 Ml Udp) 30 mg PO Q12H PRN PRN Reason: Cough Stop: 11/23/24 22:34 Last Admin: 10/25/24 20:15 Dose: 30 mg Documented By: Admin: 10/25/24 02:46 Dose: 30 mg Documented By: LESLIE Doxycycline Hyclate (Doxycycline Hyclate 100 Mg Cap) 100 mg PO NOW STA Stop: 10/24/24 14:23 Last Admin: 10/24/24 15:12 Dose: 100 mg Documented By: TROY Doxycycline Hyclate (Doxycycline Hyclate 100 Mg Cap) 100 mg PO BID [facility] Stop: 10/29/24 20:59 Last Admin: 10/25/24 09:07 Dose: 100 mg Documented By: Admin: 10/24/24 20:56 Dose: 100 mg Documented By: LESLIE Enoxaparin Sodium (Enoxaparin Inj 40 Mg/0.4 Ml Syr) 40 mg SQ NOW ONE Stop: 10/24/24 14:46 Last Admin: 10/24/24 18:57 Dose: Not Given Documented By: LESLIE Enoxaparin Sodium (Enoxaparin Inj 40 Mg/0.4 Ml Syr) [facility]: 11/24/24 08:59 Last Admin: 10/26/24 07:24 Dose: 40 mg Documented By: Admin: 10/25/24 09:07 Dose: 40 mg Documented By: ASHLEY Guaifenesin (Guaifenesin 600 Mg Tabcr) 1,200 mg PO Q12 [facility] Stop: 11/23/24 20:59 Last Admin: 10/26/24 07:23 Dose: 1,200 mg Documented By: Admin: 10/25/24 20:14 Dose: 1,200 mg Documented By: Admin: 10/25/24 09:07 Dose: 1,200 mg Documented By: Admin: 10/24/24 20:56 Dose: 1,200 mg Documented By: LESLIE Sodium Chloride (Nss) 1,000 mls @ 999 mls/hr IV .Q1H1M ONE Stop: 10/24/24 11:13 Last Infusion: 10/24/24 15:32 Dose: Infused Documented By: Admin: 10/24/24 10:15 Dose: 999 mls/hr Documented By: HONG Acetaminophen (Ofirmev) 1,000 mg in 100 mls @ 400 mls/hr IV NOW STA Stop: 10/24/24 11:12 Last Infusion: 10/24/24 15:08 Dose: Infused Documented By: Admin: 10/24/24 11:05 Dose: 400 mls/hr Documented By: HONG Ceftriaxone Sodium (Rocephin) 2,000 mg in 50 mls @ 100 mls/hr IV ONE ONE Stop: 10/24/24 14:59 Last Infusion: 10/24/24 15:15 Dose: Infused Documented By: Admin: 10/24/24 15:12 Dose: 100 mls/hr Documented By: TROY Ceftriaxone Sodium (Rocephin) 1,000 mg in 50 mls @ 100 mls/hr IV Q24H [facility] Stop: 10/30/24 14:59 Last Infusion: 10/25/24 15:47 Dose: Infused Documented By: Admin: 10/25/24 15:16 Dose: 100 mls/hr Documented By: ASHLEY Losartan Potassium (Losartan Potassium 25 Mg Tab) 25 mg PO DAILY [facility] Stop: 11/24/24 08:59 Last Admin: 10/26/24 07:23 Dose: 25 mg Documented By: Admin: 10/25/24 09:07 Dose: 25 mg Documented By: ASHLEY Metoprolol Succinate (Metoprolol Succ 50mg Ext Rel Tab) 50 mg PO DAILY [facility] Stop: 11/24/24 08:59 Last Admin: 10/26/24 07:23 Dose: 50 mg Documented By: Admin: 10/25/24 09:07 Dose: 50 mg Documented By: ASHLEY Sodium Chloride (Sodium Chloride 0.65% Na Soln 45 Ml ([place])) Confirm Administered Dose 225 sprays .ROUTE .STK-MED ONE Stop: 10/24/24 21:00 Last Admin: 10/24/24 21:32 Dose: 225 sprays Documented By: LESLIE Ticagrelor (Ticagrelor 90 Mg Tab) 90 mg PO BID [facility] Stop: 11/23/24 20:59 Last Admin: 10/26/24 07:23 Dose: 90 mg Documented By: Admin: 10/25/24 20:14 Dose: 90 mg Documented By: Admin: 10/25/24 09:07 Dose: 90 mg Documented By: Admin: 10/24/24 20:56 Dose: 90 mg Documented By: LESLIE Imaging Data Radiologist's Impression: Chest X-Ray 10/24/24 09:39 XR chest 1V not portable HISTORY: 69 years-old Male Chest pain, nonspecific COMPARISON: 07/09/2024 TECHNIQUE: AP view the chest FINDINGS: Cardiac silhouette is enlarged. Right hemidiaphragmatic elevation is new from prior. Trace pleural effusions. No pneumothorax. Ill-defined patchy bilateral mixed interstitial and alveolar opacities. Bones appear grossly intact. IMPRESSION: 1. Cardiomegaly with mixed interstitial and alveolar opacities suspicious for multifocal pneumonia. Pulmonary edema could appear similarly. 2. Right hemidiaphragmatic elevation with trace pleural effusions. ACT 112: Negative or not required by law. The above report was generated using voice recognition software. It may contain grammatical, syntax or spelling errors. Electronically signed by: Luis Lang M.D. 10/24/2024 10:21 AM Discharge Plan Visit Data Chief Complaint: Shortness of Breath/Dyspnea Stated Complaint: SOB, COVID + ED Provider: John Alvares Discharge Problem: Pneumonia, Coronary artery disease, COVID-19, Elevated troponin, Acute dyspnea Patient Disposition: Admitted As Inpatient Discharge Instructions Interventions: ED Discharge Assessment Last Done: 10/24/24 17:33 Discharge Problem: Pneumonia Qualifiers: Pneumonia type: due to unspecified organism Laterality: bilateral Lung location: lower lobe of lung Qualified Code(s): J18.9 - Pneumonia, unspecified organism Coronary artery disease Qualifiers: Coronary Disease-Associated Artery/Lesion type: koi artery [place] vs. transplanted heart: koi heart Associated angina: without angina Qualified Code(s): I25.10 - Atherosclerotic heart disease of koi coronary artery without angina pectoris
[2024-10-24 10:05] LABS: Basophils # (auto) 0.03 K/uL (0.00-0.20); Basophils % (auto) 0.4 %; Eosinophils # (auto) 0.22 K/uL (0.00-0.50); Eosinophils % (auto) 2.6 %; Hemoglobin 14.5 g/dl (14.0-18.0); Immature Granulocytes # (auto) 0.05 K/uL (0.01-0.20); Immature Granulocytes % (auto) 0.6 %; Lymphocytes # (auto) 0.92 K/uL (1.20-3.40); Lymphocytes % (auto) 10.9 %; Mean Corpuscular Hemoglobin 29.6 pg (25.0-34.0); Mean Corpuscular Hgb Conc 33.7 g/dL (32.0-36.0); Mean Corpuscular Volume 87.8 fL (80.0-100.0); Mean Platelet Volume 8.8 fL (9.4-12.4); Monocytes # (auto) 0.47 K/uL (0.11-0.59); Monocytes % (auto) 5.6 %; Neutrophils # (auto) 6.75 K/uL (1.40-6.50); Neutrophils % (auto) 79.9 %; Platelet Count 268 K/uL (130-400); RDW Coefficient of Variation 13.4 % (11.5-14.5); RDW Standard Deviation 43.3 fL (36.4-46.3); White Blood Count 8.44 K/ul (4.8-10.8)
[2024-10-24] MEDS: ALBUT/IPRATROP 3MG/0.5MG NEB 3 ML VIAL INH STA (10:15)
[2024-10-24] MEDS: SODIUM CHLORIDE 0.9% 1,000 ML IV ONE (10:15)
[2024-10-24 10:20] LABS: Albumin Globulin Ratio 0.9 (0.9-2); Albumin Level 3.8 gm/dl (3.4-5.0); Bilirubin,Total 0.5 mg/dl (0.2-1.0); Calcium 9.1 mg/dl (8.6-10.3); Creatinine Clr Calc Pharmacy 85.5 ml/min; Globulin 4.3 gm/dl (2.5-4.0); Potassium 4.1 mmol/L (3.5-5.1); Total Protein 8.1 gm/dl (6.0-8.3)
--- NOTE | 2024-10-24 10:22 | XRay Report ---
XR chest 1V not portable HISTORY: 69 years-old Male Chest pain, nonspecific COMPARISON: 07/09/2024 TECHNIQUE: AP view the chest FINDINGS: Cardiac silhouette is enlarged. Right hemidiaphragmatic elevation is new from prior. Trace pleural ef fusions. No pneumothorax. Ill-defined patchy bilateral mixed interstitial and alveolar opacities. Bon es appear grossly intact. IMPRESSION: 1. Cardiomegaly with mixed interstitial and alveolar opacities suspicious for multifocal pneumonia. P ulmonary edema could appear similarly. 2. Right hemidiaphragmatic elevation with trace pleural effusions. ACT 112: Negative or not required by law. The above report was generated using voice recognition software. It may contain grammatical, syntax o r spelling errors. Electronically signed by: Luis Lang M.D. 10/24/2024 10:21 AM
[2024-10-24 10:26] LABS: Troponin I High Sensitivity 22.7 pg/ml (0-20)
[2024-10-24 10:30] LABS: INR 1.1 (0.9-1.1); Partial Thromboplastin Ratio 1.1; Partial Thromboplastin Time 29 Seconds (21-31); Prothrombin Time 11.9 Seconds (9.0-12.0)
[2024-10-24] MEDS: ACETAMINOPHEN 1,000 MG/100 ML VIAL IV STA (11:05)
[2024-10-24 12:29] LABS: Adenovirus PCR Not Detected (NotDetected); Bordetella parapertussis PCR Not Detected (NotDetected); Bordetella pertussis PCR Not Detected (NotDetected); Chlamydia pneumoniae PCR Not Detected (NotDetected); Coronavirus 229E PCR Not Detected (NotDetected); Coronavirus CoV-2 (COVID19)PCR DETECTED (NotDetected); Coronavirus HKU1 PCR Not Detected (NotDetected); Coronavirus NL63 PCR Not Detected (NotDetected); Coronavirus OC43PCR Not Detected (NotDetected); Human Metapneumovirus PCR Not Detected (NotDetected); Influenza A PCR Not Detected (NotDetected); Influenza B PCR Not Detected (NotDetected); Mycoplasma pneumoniae PCR Not Detected (NotDetected); Parainfluenza Virus 1 PCR Not Detected (NotDetected); Parainfluenza Virus 2 PCR Not Detected (NotDetected); Parainfluenza Virus 3 PCR Not Detected (NotDetected); Parainfluenza Virus 4 PCR Not Detected (NotDetected); Respiratory Syncytial VirusPCR Not Detected (NotDetected); Rhinovirus/Enterovirus PCR Not Detected (NotDetected)
--- NOTE | 2024-10-24 12:33 | Electrocardiogram Report ---
Test Reason : Blood Pressure : */* mmHG Vent. Rate : 87 BPM Atrial Rate : 87 BPM P-R Int : 150 ms QRS Dur : 90 ms QT Int : 372 ms P-R-T Axes : 41 -23 58 degrees QTcB Int : 447 ms Normal sinus rhythm Normal ECG When compared with ECG of 09-Jul-2024 11:42, Vent. rate has increased by 30 bpm Borderline criteria for Anterior infarct are no longer Present Confirmed by Agustin Villarreal ([id number]) on 10/24/2024 12:32:42 PM Referred By: REFERRED SELF Confirmed By: Agustin Villarreal
[2024-10-24 13:35] LABS: C Reactive Protein 29.39 mg/dl (0-0.5)
--- NOTE | 2024-10-24 13:59 | History & Physical Report ---
Date of Service October 24, 2024 Assessment & Plan (1) Pneumonia: (2) Coronary artery disease: (3) Benign essential hypertension: Plan Pt is a 69 yo male with a past medical hx of CAD with 2 stents placed in 2022 and HTN who presents to the hospital on 10/24 for worsening URI symptoms and SOB, admitted for pneumonia refractory to outpatient treatment. #Multifocal pneumonia - CXR shows multifocal opacities suggestive of pneumonia on admission - pt initially had symptoms suggestive of viral URI but developed fevers 6-7 days into illness course with change of cough from dry to productive - seen at urgent care this past weekend, given amoxicillin, but fevers continued - biofire + for COVID - will treat with ceftriaxone and doxycycline, suspect need for atypical coverage omer in improving this pt - oxygen as needed, procal pending #CAD - continue home aspirin - continue home metoprolol - continue home atorvastatin - continue home Brilinta #HTN - continue home losartan VTE ppx: lovenox IVF: none, encourage po intake Antibiotics: ceftriaxone and doxycycline History of Present Illness Chief Complaint: Shortness of breath Primary Care Provider: Tristin Lopez DO Pt is a 69 yo male with a past medical hx of CAD with 2 stents placed in 2022 and HTN who presents to the hospital on 10/24 for worsening URI symptoms and SOB. Pt states symptoms started about 12 days ago and started with dry cough, sore throat, chest congestion, some SOB. Prior to that, he had been traveling. He states he took OTC Nyquil for a few days which helped some. He states that over this past weekend he then started to develop fevers, 100-102F, at home and generally felt worse with cough now being productive with green/yellow sputum. He states that he went to [facility] urgent care on Sunday and was given amoxicillin. He states that he has continued to have fevers at home since, was taking advil for it. He states he also feels more SOB both at rest and activity than he did before. No chest pain, no nausea or vomiting. No diarrhea. He still has yellow/green sputum. Also notes decreased appetite but he has been trying to hydrate and eat lots of fruits. He states he is vaccinated against COVID, never had COVID before. Tested positive for covid at urgent care. He states he has never been this sick before. No hx of asthma or COPD. Allergies Allergy/AdvReac Type Severity Reaction Status Date / Time No Known Allergies Allergy Verified 10/24/24 08:20 Home Medications Medication Instructions Recorded Confirmed Type psyllium husk 3.4 gram/5.4 gram 1 tbsp PO DAILY 10/13/23 10/24/24 History oral powder (Metamucil) nitroglycerin 0.4 mg sublingual 0.4 mg sublingual Q5M PRN Chest 10/17/23 10/24/24 History tablet (Nitrostat) pain aspirin 81 mg tablet,delayed 81 mg PO QAM #90 tabs 08/08/24 10/24/24 Rx release atorvastatin 40 mg tablet 40 mg PO QAM #90 tabs 08/08/24 10/24/24 Rx losartan 25 mg tablet 25 mg PO DAILY #90 tabs 08/08/24 10/24/24 Rx omega 2-uzn-xkd-fish oil 1,000 mg 1 cap PO DAILY #90 caps 08/08/24 10/24/24 Rx (120 mg-180 mg) capsule (Fish Oil) ticagrelor 90 mg tablet (Brilinta) 90 mg PO BID #180 tabs 08/08/24 10/24/24 Rx amoxicillin 875 mg tablet 875 mg PO BID 7 days #14 tabs 10/19/24 10/24/24 Rx metoprolol succinate 25 mg 50 mg PO DAILY 10/24/24 10/24/24 History tablet,extended release 24 hr Past Med/Surg History Problem List (Updated 10/24/24 @ 14:10 by Ayaka Nair DO) Pneumonia Laceration of scalp (Acute) Syncope (Acute) Elevated hemoglobin A1c Benign essential hypertension Atherogenic dyslipidemia Ischemic cardiomyopathy Coronary artery disease (Acute) Medical History NSTEMI (non-ST elevated myocardial infarction) Acute congestive heart failure Myocardial Infarction Hyperlipidemia Acute coronary syndrome Chest pain Kidney stone Surgical History History of heart artery stent History of colonoscopy Family History Mother Breast cancer Cancer Denies family history of Ovarian cancer Prostate cancer Myocardial infarction Lung cancer Colorectal cancer Social History Smoking Status: Never smoker Tobacco Type: Cigarettes Age Started Using Tobacco: 18; Age Quit Using Tobacco: 20; packs per day: 0; Cigarettes Per Day: 1-2 cigarettes per day; Second Hand Exposure: No; Do You Dip or Chew Tobacco: No; Hx Alcohol Use: Yes Alcohol type: beer, wine and hard liquor Alcohol Intake Frequency: Monthly or Less Hx Substance Use: No Preferred Language: Estonian Communication Ability: Effective Visual Impairment: Limited Hearing Ability: Normal Glass Technician/Installer Required: No Beliefs That Will Affect Care: None marital status: Current Living Situation: Spouse Current Living Situation Comment: spouse and 1 child current occupational status: employed 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 Physical Exam Physical Exam: General:Alert and oriented, no acute distress, comfortable appearing HEENT: Normocephalic, moist oral mucosa, Cardio: Regular rate and rhythm, no murmur, Resp:Diffuse crackles heard throughout lower and middle lung lobes, very faintly heard in upper lung lobes GI: Soft and nontender, Skin: Warm, pink, dry, Results & Data Results & Data Vital Signs (Past 12 Hours) Vital Signs Temp Pulse Resp BP Pulse Ox O2 Del Method 10/24/24 13:53 91 Room Air 10/24/24 12:30 87 24 109/74 92 10/24/24 12:03 93 H 23 93 10/24/24 11:06 98 H 22 95 10/24/24 10:21 Room Air 10/24/24 10:19 84 10/24/24 10:12 89 19 95 10/24/24 09:48 87 21 95 10/24/24 09:39 Room Air 10/24/24 09:39 Room Air 10/24/24 09:37 96 Room Air 10/24/24 09:37 36.8 C 86 26 H 153/95 H 96 Room Air Supervising Physician Co-Signing Physician Notes I personally saw and examined the patient. I independently reviewed the labs, EKG, imaging, problem list, medication list, past medical history and family history. I verified all omer points and agree with resident physician Dr Ayaka Nair, with the following exceptions and/or additions: 69 year old male presents to the ER with shortness of breath and cough. Ongoing symptoms for 2 weeks. Initially improving but now getting worse over the last few days with ongoing fevers O/E A&Ox3, HS RRR, no murmurs, Chest CTAB, Abdo SNT A/P Multifocal pneumonia - suspect this is either the secondary inflammatory phase of COVID although anecdotally I have not seen this in over 2 years although his very elevated CRP with normal WBC and procalcitonin suggests this vs. hopefully atypical pneumonia as this is much more treatable with better assisted prognosis. He does not qualify for steroids for COVID and well outside the window of effectiveness for antivirals presuming his initial infection was COVID starting 2 weeks ago. Will admit for antibiotics and monitor overnight but it stable/improving can likely be discharged tomorrow. Urine legionella sent Resident Activity Tracking Resident Involvement: Resident Care Provided Care Provided: Adult Hospital Medicine (2) Coronary artery disease Associated angina: unspecified whether angina present Coronary Disease- Associated Artery/Lesion type: unspecified vessel or lesion type [place] vs. transplanted heart: unspecified whether [place] or transplanted heart Qualified Code(s): I25.10 - Atherosclerotic heart disease of [place] coronary artery without angina pectoris
[2024-10-24] MEDS ORDERED: cefTRIAXone SODIUM 1,000 MG/50 ML BAG IV ONE (14:19)
[2024-10-24] MEDS: DOXYCYCLINE HYCLATE 100 MG CAP PO STA (15:12)
[2024-10-24] MEDS: cefTRIAXone SODIUM 2,000 MG/50 ML BAG IV ONE (15:12)
[2024-10-24] MEDS ORDERED: POLYETHYLENE (MIRALAX) 17 GM PACK PO PRN (18:02)
[2024-10-24] MEDS ORDERED: ONDANSETRON INJ 2 MG/ML 2 ML VIAL IV PRN (18:02)
[2024-10-24] MEDS ORDERED: MELATONIN 3 MG TAB PO PRN (18:02)
[2024-10-24] MEDS ORDERED: NITROGLYCERIN SL 0.4 MG/TAB TAB SL PRN (18:02)
[2024-10-24] MEDS ORDERED: COUGH DROP (SUGAR FREE) LOZ 24 LOZ/1 BOX BUCCAL PRN (18:02)
[2024-10-24] MEDS ORDERED: ACETAMINOPHEN 325 MG TAB PO PRN (18:02)
[2024-10-24] MEDS: ENOXAPARIN INJ 40 MG/0.4 ML SYR SQ ONE (18:57)
[2024-10-24] MEDS: guaiFENesin 600 MG TABCR PO SCH (20:56)
[2024-10-24] MEDS: TICAGRELOR 90 MG TAB PO SCH (20:56)
[2024-10-24] MEDS: DOXYCYCLINE HYCLATE 100 MG CAP PO SCH (20:56)
[2024-10-24] MEDS: SODIUM CHLORIDE 0.65% NA SOLN 45 ML (OCEAN) ONE (21:32)
--- NOTE | 2024-10-24 23:12 | Billing Data ---
Date of Service October 24, 2024 Coding Level of Care Code 88035 INT INP/OBS CARE
[2024-10-25] MEDS: DEXTROMETHORPHAN POLYMR COMPLX 30 MG/5 ML UDP PO PRN (02:46)
[2024-10-25 07:06] LABS: Basophils # (auto) 0.02 K/uL (0.00-0.20); Basophils % (auto) 0.3 %; Eosinophils # (auto) 0.26 K/uL (0.00-0.50); Eosinophils % (auto) 3.7 %; Hematocrit (blood only) 35.3 % (42.0-52.0); Hemoglobin 12.2 g/dl (14.0-18.0); Immature Granulocytes # (auto) 0.03 K/uL (0.01-0.20); Immature Granulocytes % (auto) 0.4 %; Lymphocytes # (auto) 1.19 K/uL (1.20-3.40); Lymphocytes % (auto) 17.1 %; Mean Corpuscular Hgb Conc 34.6 g/dL (32.0-36.0); Mean Corpuscular Volume 86.7 fL (80.0-100.0); Mean Platelet Volume 8.9 fL (9.4-12.4); Monocytes % (auto) 7.2 %; Neutrophils # (auto) 4.96 K/uL (1.40-6.50); Neutrophils % (auto) 71.3 %; Platelet Count 265 K/uL (130-400); RDW Coefficient of Variation 13.4 % (11.5-14.5); RDW Standard Deviation 42.6 fL (36.4-46.3); Red Blood Count 4.07 M/uL (4.70-6.10); White Blood Count 6.96 K/ul (4.8-10.8)
[2024-10-25 07:28] LABS: Albumin Globulin Ratio 0.9 (0.9-2); Albumin Level 3.1 gm/dl (3.4-5.0); BUN Creatinine Ratio 15.7 (10-20); Bilirubin,Total 0.4 mg/dl (0.2-1.0); Calcium 8.5 mg/dl (8.6-10.3); Creatinine Clr Calc Pharmacy 88.5 ml/min; Globulin 3.6 gm/dl (2.5-4.0); Magnesium 2.1 mg/dl (1.7-2.4); Potassium 4.3 mmol/L (3.5-5.1); Total Protein 6.7 gm/dl (6.0-8.3)
[2024-10-25] MEDS: ASPIRIN 81 MG ECTAB PO SCH (09:06)
[2024-10-25] MEDS: ATORVASTATIN 40 MG TAB PO SCH (09:06)
[2024-10-25] MEDS: METOPROLOL SUCC 50MG EXT REL TAB PO SCH (09:07)
[2024-10-25] MEDS: LOSARTAN POTASSIUM 25 MG TAB PO SCH (09:07)
[2024-10-25] MEDS: ENOXAPARIN INJ 40 MG/0.4 ML SYR SQ SCH (09:07)
--- NOTE | 2024-10-25 10:09 | Hospitalist Progress Note ---
Date of Service October 25, 2024 Assessment & Plan (1) Pneumonia: (2) Coronary artery disease: (3) Benign essential hypertension: Plan Pt is a 69 yo male with a past medical hx of CAD with 2 stents placed in 2022 and HTN who presents to the hospital on 10/24 for worsening URI symptoms and SOB, admitted for pneumonia refractory to outpatient treatment. #Multifocal pneumonia - CXR shows multifocal opacities suggestive of pneumonia on admission - pt initially had symptoms suggestive of viral URI but developed fevers 6-7 days into illness course with change of cough from dry to productive - seen at urgent care this past weekend, given amoxicillin, but fevers continued - biofire + for COVID - will treat with ceftriaxone and doxycycline, suspect need for atypical coverage omer in improving this pt - oxygen as needed, procal - #CAD - continue home aspirin - continue home metoprolol - continue home atorvastatin - continue home Brilinta #HTN - continue home losartan VTE ppx: lovenox IVF: none, encourage po intake Antibiotics: ceftriaxone and doxycycline Admission and Anticipated Discharge Date Admission Date: October 24, 2024 Supervising Physician Co-Signing Physician Notes Attending Physician Supervision Note: I independently interviewed and examined the patient and verified the omer history and physical, reviewed labs and image studies and agree with findings and care plan noted above. 69 y/o M here with shortness of breath and cough. Ongoing symptoms for 2 weeks. Initially improving but now getting worse over the last few days with ongoing fevers Reports some improvement. Still with cough. Able to walk to restroom without difficulty. A&Ox3, HS RRR, no murmurs, Chest CTA Multifocal pneumonia - High CRP, Normal WBC/procalcitonin. ?atypical pneumonia. Not candidate for steroids/antiviral since ongoing symptoms for 2 wks. -Continue ceftriaxone. Switch doxy to azithromycin. -Urine legionella pending. Hyponatremia - dropping 134->132. follow. CAD severe multivessel s/p stent - home meds. CMP - Apical hypokinesis - continue home meds. Anemia- ? hemodilution. follow. Anticipate d/c home in am if symptoms improving. Subjective Patient seen and evaluated at bedside this morning. No acute events overnight. States he is feeling much better than prior to admission. Had 5 days of illness, was feeling better and then worse. VSS on room air. Review of Systems Review of Systems: reviewed, per HPI Physical Exam Physical Exam: Constitutional: well-appearing, no acute distress HEENT: NCAT, no conjunctival injection CV: regular rhythm, no murmur appreciated, extremities well-perfused, no LE edema Resp: diminished breath sounds throughout, no discreet wheeze appreciated GI: nondistended MSK: no gross deformities appreciated Skin: warm, dry, no rash appreciated Neuro: alert, oriented, no focal neurologic deficit appreciated Results & Data Results & Data Vital Signs (Past 12 Hours) Vital Signs Temp Pulse Resp BP Pulse Ox O2 Del Method 10/25/24 09:00 Room Air 10/25/24 09:00 36.7 C 90 18 109/68 92 Room Air Resident Activity Tracking Resident Involvement: Resident Care Provided Care Provided: Adult Hospital Medicine (2) Coronary artery disease Associated angina: unspecified whether angina present Coronary Disease- Associated Artery/Lesion type: unspecified vessel or lesion type [place] vs. transplanted heart: unspecified whether [place] or transplanted heart Qualified Code(s): I25.10 - Atherosclerotic heart disease of [place] coronary artery without angina pectoris
--- NOTE | 2024-10-25 11:35 | Billing Data ---
Date of Service October 24, 2024 Coding Level of Care Code 41541 INT INP/OBS CARE
[2024-10-25] MEDS: cefTRIAXone SODIUM 1,000 MG/50 ML BAG IV SCH (15:16)
[2024-10-25] MEDS: AZITHROMYCIN 250 MG TAB PO SCH (16:37)
[2024-10-26 07:57] VITALS: RESP 16; TEMP 98.6; O2SAT 91
--- NOTE | 2024-10-26 10:50 | Discharge Summary ---
Date of Service October 26, 2024 Admission HPI Per Admitting Provider Pt is a 69 yo male with a past medical hx of CAD with 2 stents placed in 2022 and HTN who presents to the hospital on 10/24 for worsening URI symptoms and SOB. Pt states symptoms started about 12 days ago and started with dry cough, sore throat, chest congestion, some SOB. Prior to that, he had been traveling. He states he took OTC Nyquil for a few days which helped some. He states that over this past weekend he then started to develop fevers, 100-102F, at home and generally felt worse with cough now being productive with green/yellow sputum. He states that he went to [facility] urgent care on Sunday and was given amoxicillin. He states that he has continued to have fevers at home since, was taking advil for it. He states he also feels more SOB both at rest and activity than he did before. No chest pain, no nausea or vomiting. No diarrhea. He still has yellow/green sputum. Also notes decreased appetite but he has been trying to hydrate and eat lots of fruits. He states he is vaccinated against COVID, never had COVID before. Tested positive for covid at urgent care. He states he has never been this sick before. No hx of asthma or COPD. Admission Exam Per Admitting Provider General:Alert and oriented, no acute distress, comfortable appearing HEENT: Normocephalic, moist oral mucosa, Cardio: Regular rate and rhythm, no murmur, Resp:Diffuse crackles heard throughout lower and middle lung lobes, very faintly heard in upper lung lobes GI: Soft and nontender, Skin: Warm, pink, dry, Principal Diagnosis Pneumonia, COVID19 + Discharge Exam Constitutional: well-appearing, no acute distress HEENT: NCAT, no conjunctival injection CV: regular rhythm, no murmur appreciated, extremities well-perfused, no LE edema Resp: diminished breath sounds throughout, no discreet wheeze appreciated GI: nondistended MSK: no gross deformities appreciated Skin: warm, dry, no rash appreciated Neuro: alert, oriented, no focal neurologic deficit appreciated Discharge Data Allergies Allergy/AdvReac Type Severity Reaction Status Date / Time No Known Allergies Allergy Verified 10/24/24 08:20 Consultations 10/24/24 12:32 ED Decision to Admit Stat Hospital Course (1) Pneumonia: (2) Coronary artery disease: (3) Benign essential hypertension: Plan Pt is a 69 yo male with a past medical hx of CAD with 2 stents placed in 2022 and HTN who presents to the hospital on 10/24 for worsening URI symptoms and SOB, admitted for pneumonia refractory to outpatient treatment. #Multifocal pneumonia - CXR shows multifocal opacities suggestive of pneumonia on admission - pt initially had symptoms suggestive of viral URI but developed fevers 6-7 days into illness course with change of cough from dry to productive - seen at urgent care this past weekend, given amoxicillin, but fevers continued - biofire + for COVID - treated with ceftriaxone and doxycycline - doxy changed to azithromycin for legionella coverage - no need for oxygen during hospitalization - will discharge on cefpodoxime to complete 7 day course and azithromycin to complete 5 day course - recommend follow up BMP due to hyponatremia #CAD - continued home aspirin - continued home metoprolol - continued home atorvastatin - continued home Brilinta #HTN - continued home losartan Total Time Total Time Spent Total Time Spent (In Minutes): see attending documentation Discharge Plan Discharge Items Patient Disposition: Home - Self-Care Reason For Visit: PNEUMONIA Discharge Diagnosis: Pneumonia Activity: Resume your previous activity Activity Comment: as tolerated Non-emergency contact: Primary Care Provider Call non-emergency contact if: you have any medication questions, your symptoms worsen and you have a fever Follow-up/Referrals: Tristin Lopez DO [Primary Care Provider] - 10/30/24 2:30 pm Diet: Heart Healthy Addtl Attending Provider Instructions: You were admitted to the hospital for pneumonia that failed outpatient treatment. You were treated with antibiotics. You did not require oxygen during your stay and it is felt that you will do well finishing antibiotics at home. You will be discharged on two antibiotics, see below for details. A discharge summary will be sent to your primary care physician to ensure continuity of care. Please bring this discharge summary with you to your next office appointment so that your provider can review it at that time. Follow-up appointments: Make a follow-up appointment with your PCP within the next week. It is very important that you follow up with them shortly after discharge from the [facility]. Keep all your follow-up appointments as already scheduled. If you cannot make an appointment, notify your provider. Medications: Your medication list has been reviewed and reconciled upon discharge to ensure accuracy and continuity of care. An updated list of all your medications is included with your hospital discharge paperwork. Please review this list closely, and make note of any changes. We sent a new medication called cefpodoxime to your pharmacy. Take cefpodoxime (200mg) one tablet twice daily for 6 days. You should take your first dose tonight. We sent a new medication called azithromycin to your pharmacy. Take azithromycin (250mg) one tablet daily for 4 days. You should take your first dose of this tomorrow. If you have any issues filling these prescriptions, please call [phone] and ask to leave a message for Dr. Enrique Calero. Take your medications as instructed; do not skip a dose of your medicines. Make sure all of your doctors know every medicine you are taking (including uhyl-vyo-opysvuv medicines, vitamins, and supplements). Call your primary care provider before taking any new medicines (including ddxb-jey-mlxazos medicines, vitamins, and supplements), because some of these may interact with your current medications, or may make your symptoms worse. Tell your primary care provider if you cannot afford your medications. CONTACT YOUR PRIMARY CARE PROVIDER if you experience any of the following: Increase shortness of breath Fever Difficulty following your treatment plan, or difficulty taking medications CALL 911 OR GO TO THE EMERGENCY DEPARTMENT if you experience any of the following: Sudden, severe abdominal pain or nausea/vomiting Severe chest pain, or chest pain that radiates (moves) to your jaw or arm Sudden, severe shortness of breath or difficulty breathing Thank you for allowing us to participate in your care. Pending Studies at Discharge: No Stand-Alone Forms: My [facility] Medications and DC Order Prescriptions: New cefpodoxime 200 mg tablet 200 mg PO BID Qty: 12 0RF Rx Instructions: must administer with a meal/food azithromycin 250 mg tablet 250 mg PO DAILY Qty: 4 0RF Continued losartan 25 mg tablet 25 mg PO DAILY Qty: 90 3RF Rx Instructions: Take with evening meal atorvastatin 40 mg tablet 40 mg PO QAM Qty: 90 3RF omega 5-jpq-wkg-fish oil [Fish Oil] 1,000 mg (120 mg-180 mg) capsule 1 cap PO DAILY Qty: 90 3RF Rx Instructions: Unable to verify OTC meds at this date/time. Brilinta 90 mg tablet 90 mg PO BID Qty: 180 3RF aspirin 81 mg tablet,delayed release (DR/EC) 81 mg PO QAM Qty: 90 3RF Metamucil 3.4 gram/5.4 gram Powder 1 tbsp PO DAILY Rx Instructions: mix into at least 8 oz of water or juice before administering. Unable to verify OTC meds at this date/time. nitroglycerin [Nitrostat] 0.4 mg tablet, sublingual 0.4 mg sublingual Q5M MDD 3 PRN (Reason: Chest pain) Rx Instructions: Unable to verify med at this date/time. metoprolol succinate 25 mg tablet extended release 24 hr 50 mg PO DAILY Discontinued amoxicillin 875 mg tablet 875 mg PO BID 7 Days Qty: 14 0RF Rx Instructions: Start Date 10/19/24 x7 day supply Discharge Orders: Discharge Order (Routine); Ordered 10/26/24 Ordered By: Enrique Adkins/Other Patient Handouts: What Is Pneumonia? Admission Data Admit Date/Time: 10/24/24 14:14 Attending Provider: Ainsley Whiteside Admit Provider: Ayaka Nair Primary Care Provider: Tristin Lopez Other Providers: Dwight Leavitt Other Interventions: Discharge Summary Assessment (RN) Last Done: 10/26/24 13:52 Supervising Physician Co-Signing Physician Notes Attending Physician Supervision Note: I independently interviewed and examined the patient and verified the omer history and physical, reviewed labs and image studies and agree with findings and care plan noted above. 69 y/o M here with shortness of breath and cough. Ongoing symptoms for 2 weeks. Initially improving but now getting worse over the last few days with ongoing fevers Feels much better this am. Able to walk to restroom without difficulty. Cough + with phlegm. A&Ox3, HS RRR, no murmurs, Chest CTA Multifocal pneumonia - High CRP, Normal WBC/procalcitonin. ?atypical pneumonia. Not candidate for steroids/antiviral since ongoing symptoms for 2 wks. -Received ceftriaxone and azithromycin. -Urine legionella pending. -Home on azithromycin and cefpodoxine Hyponatremia - 132 - needs to have follow as outpatient. Anemia- ? hemodilution. Outpatient follow. CAD severe multivessel s/p stent - home meds. CMP - Apical hypokinesis - continue home meds. Resident Activity Tracking Resident Involvement: Resident Care Provided Care Provided: Adult [facility] Medicine
[2024-10-26 13:52] VITALS: BP 120/78; PULSE 85
== END 2024-10-26 15:19 | disposition home or self-care (01) | DRG 193 ==
LOC: ED 09:34 → 3W 14:14 → SUATTDRO 14:14 → 3W 17:33